=== PATIENT | male | born 1940 | race Caucasian/White ===

== ENCOUNTER 2025-05-17 10:43 | Outpatient (CLI) | payer MEDICARE, SELFPAY | END 2025-05-17 10:44 | disposition home or self-care (01) | LOC: AMB 05-18 10:38 | PROVIDERS: Visit Provider Emergency Medicine | DX: R53.1 Weakness (principal); R41.82 Altered mental status, unspecified | CPT/HCPCS: A0425; A0429 ==

== ENCOUNTER 2025-05-17 11:20 | Emergency (ER) | payer MEDICARE, SELFPAY ==
--- OUTSIDE RECORDS SUMMARY | 2021-11-30 10:43 | XMS_ITS | Continuity of Care Document ---
Author Name [facility] Organization [facility] Care Team Providers Care Senior It Architect Name Role Phone [facility] Unavailable Unavailable Problems Combined list of problems from Department of Defense and Veterans Affairs facilities. It does not include entries that were removed or entered in error. Problem Status Onset Date Problem Type Date of Resolution Comments Source CAD Active 09/30/19 05 Condition Dec 27, 2004 Entered By: William STARR Comment: s/p stent [facility] CA - Cancer of colon (SNOMED CT 256918141) Active 09/30/19 03 Condition Dec 18, 2002 Entered By: William STARR Comment: s/p partial colectomy [facility] Bilateral knee pain Active Condition [facility] BPH - Benign prostatic hypertrophy (SNOMED CT 794054675) Active Condition [facility] CAD - Coronary artery disease Active Condition [facility] Chronic kidney disease (SNOMED CT 899836153) Active Condition [facility] Constipation, unspecified (ICD-9-CM 564.00) Active Condition [facility] Disease, prostate Active Condition [facility] Gastroesophageal reflux disease without esophagitis (SNOMED CT 002095714) Active Condition [facility] Hyperlipidemia (SNOMED CT 47878649) Active Condition [facility] Hypertension (SNOMED CT 19975312) Active Condition [facility] Hypertrophy (Benign) of Prostate without Urinary obstruction (ICD-9-CM 600.00) Active Condition [facility] Hypothyroidism (SNOMED CT 98903889) Active Condition [facility] Peripheral neuropathy Active Condition [facility] Rheumatoid arthritis (SNOMED CT 42289110) Active Condition [facility] Sleep apnea syndrome (SNOMED CT 44895073) Active Condition [facility] Medications Combined list of outpatient medications from Department of Defense and Veterans Affairs facilities.Medications provided include 1) outpatient medications from the last 15 months, and 2) patient-reported medications. Medication Details Route Status Patient Instructions Prescription Expires Prescription Number Last Dispense Date Ordering Provider Order Date Order Qty Source ASPIRIN 81MG TAB,EC TAKE ONE TABLET BY MOUTH ONCE DAILY ORAL ACTIVE MADDIPATL A AMAIRANI SHAYYCEM 2013 [facility] ATORVASTATI N CA 40MG TAB TAKE ONE-HALF TABLET BY MOUTH AT BEDTIME ORAL ACTIVE MADDIPATL A AMAIRANI SHAYY,CEM ARRIAGA 2013 [facility] FINASTERIDE 5MG TAB TAKE ONE TABLET BY MOUTH ONCE DAILY ORAL ACTIVE MADDIPATL A AMAIRANI SHAYY,CEM ARRIAGA 2013 [facility] FUROSEMIDE 40MG TAB TAKE ONE TABLET BY MOUTH ONCE DAILY ORAL ACTIVE MADDIPATL A AMAIRANI SHAYYCEM 2013 [facility] GABAPENTIN 600MG TAB TAKE ONE-HALF TABLET BY MOUTH TWICE DAILY ORAL ACTIVE MADDIPATL A AMAIRANI SHAYYCEM 2013 [facility] MULTIVITAMI NS W/MINERALS TAB TAKE ONE TABLET BY MOUTH ONCE DAILY ORAL ACTIVE ADELAIDA BAH A 2016 [facility] OMEPRAZOLE 20MG CAP,EC TAKE 1 CAPSULE BY MOUTH ONCE DAILY ORAL ACTIVE MADDIPATL A AMAIRANI SHAYY,CEM ARRIAGA 2013 [facility] POLYETHYLEN E GLYCOL 3350 PWDR,ORAL TAKE 1 MEASURED CAPFUL (1 HEAPING TABLESPO ONFUL) AND MIX IN 8 OUNCES OF WATER OR JUICE ONCE DAILY NOT APPLIC ABLE ACTIVE MADDIPATL A AMAIRANI SHAYYCEM 2013 [facility] PSYLLIUM PWDR,ORAL TAKE 1 TEASPOON FUL AND MIX IN 8 OUNCES OF WATER OR JUICE ONCE DAILY NOT APPLIC ABLE ACTIVE MADDIPATL A AMAIRANI SHAYYCEM 2013 [facility] TAMSULOSIN HCL 0.4MG CAP TAKE 1 CAPSULE BY MOUTH AT BEDTIME ORAL ACTIVE CEM CAIN BART 2013 [facility] Allergies, Adverse Reactions, Alerts Combined list of allergies from Department of Defense and Veterans Affairs facilities. It does not include entries that were removed or entered in error. Substance Category Reaction Severity Reaction type Status Date Reported Comments Source LISINOPRIL Propensity to adverse reactions to drug (finding) active 1 [facility] Immunizations Combined list of available immunizations from the Department of Defense and Veterans Affairs facilities. Immunization Series Date Given Administered By Site Reaction Lot Number CVX Code Drug Audio Installer Status Comments Source INFLUENZA, UNSPECIFIED FORMULATION 2020 88 complet ed [facility] COVID-19 (MODERNA), MRNA, LNP-S, PF, 100 MCG/0.5 ML DOSE 2 2020 207 complet ed [facility] COVID-19 (MODERNA), MRNA, LNP-S, PF, 100 MCG/0.5 ML DOSE 1 2020 207 complet ed [facility] INFLUENZA, UNSPECIFIED FORMULATION 2019 88 complet ed [facility] FLU,3 YRS (HISTORICAL) 2018 88 complet ed [facility] FLU,3 YRS (HISTORICAL) 2017 88 complet ed [facility] FLU,3 YRS (HISTORICAL) 2017 88 complet ed [facility] FLU,3 YRS (HISTORICAL) 2015 88 complet ed [facility] FLU,3 YRS (HISTORICAL) 2014 88 complet ed recieved [facility] PNEUMOCOCCAL POLYSACCHARID E PPV23 2014 33 complet ed requested [facility] FLU, 3YRS (HISTORICAL) 2013 88 complet ed [facility] VARICELLA 2013 21 complet ed requested [facility] PNEUMOCOCCAL CONJUGATE PCV 13 2013 133 complet ed requested [facility] FLU, 3YRS (HISTORICAL) 2012 88 complet ed [facility] FLU, 3YRS (HISTORICAL) 2011 88 complet ed [facility] FLU,3 YRS (HISTORICAL) 2010 88 complet ed [facility] PNEUMOCOCCAL CONJUGATE PCV 13 2010 133 complet ed requested [facility] FLU, 3YRS (HISTORICAL) 2009 88 complet ed [facility] FLU,3 YRS (HISTORICAL) 2009 88 complet ed [facility] FLU,3 YRS (HISTORICAL) 2008 88 complet ed [facility] NOVEL INFLUENZA-H1N 1-09, ALL FORMULATIONS 2008 128 complet ed [facility] FLU,3 YRS (HISTORICAL) 2007 88 complet ed [facility] FLU,3 YRS (HISTORICAL) 2006 88 complet ed [facility] FLU,3 YRS (HISTORICAL) 2005 88 complet ed [facility] FLU,3 YRS (HISTORICAL) 2004 88 complet ed [facility] FLU,3 YRS (HISTORICAL) 2003 88 complet ed [facility] PNEUMOCOCCAL, UNSPECIFIED FORMULATION 2003 109 complet ed [facility] FLU,3 YRS (HISTORICAL) 2001 88 complet ed [facility] FLU,3 YRS (HISTORICAL) 2000 88 complet ed [facility] PNEUMOCOCCAL, UNSPECIFIED FORMULATION 2000 109 complet ed [facility] Social History Combined list of available smoking, tobacco, and other social history from Department of Defense and Veterans Affairs facilities. Social History Type Response Date Comment Sourc e Tobacco smoking status VAIS VA-TOBACCO NEVER USED 11/30/2021 [facility] History of tobacco use VA-TOBACCO NEVER USED 12/07/2020 [facility] History of tobacco use VA-TOBACCO NEVER USED 12/11/2018 [facility] [place] of tobacco use VA-TOBACCO NEVER USED 12/11/2018 [facility] [place] History of tobacco use QUIT TOBACCO >7 YEARS AGO 05/17/2016 [facility] [place] History of tobacco use LIFETIME NON-USER OF TOBACCO 04/22/2012 [facility] History of tobacco use LIFETIME NON-USER OF TOBACCO 05/07/2011 [facility] History of tobacco use LIFETIME NON-USER OF TOBACCO 07/20/2010 [facility] History of tobacco use LIFETIME NON-USER OF TOBACCO 01/03/2010 [facility] History of tobacco use QUIT TOBACCO >12 MO and <7 YRS AGO 03/01/2009 [facility] History of tobacco use QUIT TOBACCO >12 MO and <7 YRS AGO 03/12/2008 [facility] History of tobacco use QUIT TOBACCO >12 MO and <7 YRS AGO 02/25/2007 [facility] History of tobacco use QUIT TOBACCO >12 MO and <7 YRS AGO 05/10/2006 [facility] History of tobacco use CURRENT TOBACCO USER 01/17/2005 [facility] History of tobacco use CURRENT TOBACCO USER 12/20/2003 [facility] History of tobacco use QUIT TOBACCO IN THE LAST 12 MONTHS 12/18/2002 [facility] History of tobacco use CURRENT TOBACCO USER 11/24/2001 [facility]
--- OUTSIDE RECORDS SUMMARY | 2025-04-27 11:30 | XMS_ITS | Encounter Summary ---
Author Organization [facility] Address [address] [place] [address] Care Team Providers Care Air Control/Anti Air Warfare Officer Name Role Phone Mary Goodwin M.D. Primary Care Provider [phone] Reason for Referral * Outpatient (Routine) - Authorized Specialty Diagnoses / Procedures Referred By Contac t Referred To Contact Otorhinolaryngology Diagnoses Cholesteatoma External Ear Bilateral Cerumen Impacted Bilateral Unspecified Chronic Otitis Externa Right Ear Brad Acosta M.D. [address] [place] [address] Phone: tel: fax: [facility] Referral ID Status Reason Start Date Expiration Date V isits Requested Visits Authorized [id number] Authorized 04/27/2025 10/27/2026 1 1 Reason for Visit * Outpatient (Routine) - Closed Specialty Diagnoses / Procedures Referred By Contac t Referred To Contact Otorhinolaryngology Diagnoses Cholesteatoma External Ear Bilateral Cerumen Impacted Bilateral Brad Acosta M.D. [address] [place] [address] Phone: tel: fax: [facility] Region Referral ID Status Reason Start Date Expiration Date Visits Re quested Visits Authorized [id number] Closed 01/26/2025 07/28/2026 1 1 Encounter Details Date Type Department Care Team (Latest Contact Info) Description 04/27/2025 11:30 AM CDT Office Visit Department of Otorhinolaryngology in [place], [place] [address] [place] [phone] Brad Acosta M.D. [address] [place] [address] Cholesteatoma External Ear Bilateral (Primary Dx); Cerumen Impacted Bilateral; Unspecified Chronic Otitis Externa Right Ear Discharge Disposition: Home or Self Care Social History Tobacco Use Types Packs/Day Years Used Date Smoking Tobacco: Former Cigarettes 0 1953 - 09/30/2004 Passive Smoke Exposure: Never Smokeless Tobacco: Never Tobacco Cessation:Counseling Given: Not Answered Alcohol Use Standard Drinks/Week Comments Not Currently 0 (1 standard drink = 0.6 oz pur e alcohol) rare. Humiliation, Afraid, Rape, and Kick questionnair e Answer Date Recorded Within the last year, have y ou been afraid of your partner or ex-partner? No 04/29/2023 Within the last year, have y ou been humiliated or emotionally abused in other ways by your partner or ex-partner? No Within the last year, have y ou been kicked, hit, slapped, or otherwise physically hurt by your partner or ex-partner? No 04/29/2023 Within the last year, have y ou been raped or forced to have any kind of sexual activity by your partner or ex-partner? No 04/29/2023 Hunger Vital Sign Answer Date Recorded Within the past 12 months, y ou worried that your food would run out before you got the money to buy more. Never true 04/20/20 25 Within the past 12 months, t he food you bought just didn't last and you didn't have money to get more. Never true 04/20/2025 PRAPARE - Transportation Answer Date Re corded In the past 12 months, has l ack of transportation kept you from medical appointments or from getting medications? No 03/31 In the past 12 months, has l ack of transportation kept you from meetings, work, or from getting things needed for daily living? No 04/20/2025 [facility] Utilities Answer Date Recorded In the past 12 months has th e electric, gas, oil, or water company threatened to shut off services in your home? No 04/20/2025 Depression Answer Date Recor ded PHQ-9 Total Score (max 27) 2 11/12 Housing Stability Answer Date Recorded What is your living situation today? I have a [facility] place to live 04/20/2025 Education Answer Date Recorded What is the highest level of school you have completed or the highest degree you have received? 12th grade 12/03/2022 Sex and Gender Information Value Date Recorded Sex Assigned at Male 12/03/2022 5:23 PM SYSTEM SUPPORT SPECIALIST Legal Sex Male 3:43 PM CDT Gender Identity Male 12/03/2022 5:23 PM SYSTEM SUPPORT SPECIALIST Sexual Orientation Straight 12/03/2022 5: 23 PM SYSTEM SUPPORT SPECIALIST documented as of this encounter Progress Notes * Brad Acosta M.D. - 04/27/2025 11:30 AM CDT SUBJECTIVE CHIEF COMPLAINT/REASON FOR VISIT Geremias Estrella is a very pleasant 84 y.o. male who presents for the following: No chief complainton file.. HISTORY OF PRESENT ILLNESS Mr. Estrella returns for follow up chronic otitis externa, cholesteatoma like expansion of the canal with underlying inflammation although no significant cholesteatoma debris. He denies any interim symptoms, no change in hearing, no ear pain or drainage. OBJECTIVE PHYSICAL EXAMINATION Appears well, no distress. Both canals demonstrate adherent keratinous cerumen on the floor lateralcanal, some lateral canal expansion. Diffuse lateral canal floor carotid cerumen elevated, some underlying inflammation, couple scant foci granulation. Otherwise canal patent. It visible TMs intact. ASSESSMENT / PLAN #1 Cholesteatoma External Ear Bilateral #2 Cerumen Impacted Bilateral #3 Unspecified Chronic Otitis Externa Right Ear Other orders - Otorhinolaryngology office visit (clinic) - Otorhinolaryngology office visit (clinic); Future; Expected date: 08/28/2025 #1 Cholesteatoma External Ear Bilateral Discussed option further evaluation [place] [facility], he declined. I do ultimately think he is simply going to need ongoing routine debridement to sustain and avoid progression. Findings have been stable with three-month recheck, will increase to 4 month recheck. Invited to return sooner any symptoms or concerns. #2 Cerumen Impacted Bilateral Debrided #3 Unspecified Chronic Otitis Externa Right Ear We will likely improve with debridement. No enduring improvement following prior Ciprodex treatment. Option extended course discussed, he declined any further topical therapy. Follow up room 5, alligator. We will need blanket on headrest to provide additional elevation to support head during debridement documented in this encounter Plan of Treatment Upcoming Encounters Date Type Department Care Team (Late st Contact Info) Description 05/25/2025 4:30 PM CDT Appointment Department of Laboratory Medicine in [address] [phone] Mary Goodwin M.D. [address] [place] [phone] 05/27/2025 9:00 AM CDT Office Visit Department of Family Medicine, [facility], in [address] [phone] Mary Goodwin M.D. [address] [place] [phone] Discharge Disposition: Home or Self Care 07/26/2025 3:15 PM CDT Office Visit Department of Orthopedic Surgery in [address] [phone] Elsa Villarreal D.PDavidM. [address] [place] [address] Discharge Disposition: Home or Self Care Scheduled Referrals Name Type Priority Associated Diagnoses Order Schedule Otorhinolaryngology office visit (clinic) Outpatient Referral Routine Cholesteatoma External Ear Bilateral Cerumen Impacted Bilateral Unspecified Chronic Otitis Externa Right Ear Expected: 08/28/2025, Expires: 07/28/2026 documented as of this encounter Visit Diagnoses Diagnosis Cholesteatoma External Ear Bilateral- Primary Cerumen Impacted Bilateral Unspecified Chronic Otitis Externa Right Ear documented in this encounter Additional Health Concerns Assessment Noted Time PHQ-9 Depression Total Score: 2 11/12/19 24 4:33 PM SYSTEM SUPPORT SPECIALIST documented as of this encounter Care Teams Air Control/Anti Air Warfare Officer Relationship Specialty Start Date End Date Mary Goodwin M.D. [address] [place] [phone] PCP - General 02/14/24 documented as of this encounter
[2025-05-17] VITALS (15 sets, daily range): BP systolic 124–129; BP diastolic 66–85; PULSE 75–80; RESP 18–20; TEMP 37; O2SAT 99–100
--- NOTE | 2025-05-17 11:55 | CRLHL7_ITS ---
For Patients: As a result of the Cures Act, medical imaging exams and procedure reports are released immediately into your electronic medical record. You may view this report before your referring provider. If you have questions, please contact your health care provider. INDICATION: Edema. Dialysis patient. COMPARISON: None TECHNIQUE: Two radiographic view(s) of the chest. FINDINGS: No pneumothorax. No substantial pleural effusion. Diffuse prominence of the interstitial pulmonary markings. Prominent focal opacity at the left lower lung zone which may represent consolidation or atelectasis. Heart size measures at the upper limits of normal. Tortuous and calcified thoracic aorta. Partially imaged cervical spinal fusion hardware. There are osseous degenerative changes. IMPRESSION: Diffuse prominence of the pulmonary interstitial markings probably representing either edema or infection. Prominent focal opacity at the left lower lung zone which may represent consolidation or atelectasis. Heart size measures at the upper limits of normal. Dictated by Wei Bundy MD @ 05/17/2025 1:36:26 PM (Electronically Signed)
--- NOTE | 2025-05-17 11:56 | ED.GENADULT ---
HPI - General Adult General Time Seen by Provider: 11:56 Date Seen: 05/17/25 Chief complaint: Altered Mental Status Stated complaint: Altered mental Time Seen by Provider: 05/17/25 11:33 Source: patient Mode of arrival: EMS Limitations: physical limitation History of Present Illness HPI narrative: Geremias is an 84-year-old male with end-stage renal disease currently on dialysis M/W/F, diabetes mellitus type 2, hypertension, hyperlipidemia presents emerged department from dialysis via EMS with altered mental status. Patient states that he got up around 9:00 a.m. this morning, he had more difficulty getting himself dressed, he states he has a lot of pain in both of his knees which is chronic, he has been taking tramadol which has not been helping with his pain. His son had to help him get his shoes on, and he was unable to walk due to the pain and weakness. Son helped him get to dialysis, they only did about 2-1/2 hours on a 4 hour run, staff there thought he was more confused. Patient feels he has had more memory issues over last few months. He denies any recent falls or injuries. Denies any fevers or chills, he denies any worsening shortness of breath or chest pain, he has not had any abdominal pain. He does not have any urinary output. No diarrhea. There was concern for changes in mental status so he is brought to the emergency department. Related Data Home Medications ?Medication ?Instructions ?Recorded ?Confirmed amitriptyline 50 mg tablet 50 mg PO QHS 05/17/25 05/17/25 antiarthritic combination no.2 900 mg PO 05/17/25 mg tablet (glucosamine-chondroitin) aspirin 81 mg tablet 81 mg PO DAILY 05/17/25 05/17/25 atorvastatin 20 mg tablet 20 mg PO QHS 05/17/25 05/17/25 clopidogrel 75 mg tablet (Plavix) 75 mg PO DAILY 05/17/25 05/17/25 finasteride 5 mg tablet 5 mg PO DAILY 05/17/25 05/17/25 gabapentin 300 mg capsule 300 mg PO QHS 05/17/25 05/17/25 hydroxyzine pamoate 25 mg capsule 25 mg PO BID 05/17/25 05/17/25 levothyroxine 175 mcg tablet 175 mcg PO DAILY 05/17/25 05/17/25 (Euthyrox) linaclotide 72 mcg capsule 72 mcg PO DAILY 05/17/25 05/17/25 (Linzess) midodrine 10 mg tablet 10 mg PO TID 05/17/25 05/17/25 ondansetron HCl 4 mg tablet 4 mg PO BID-TID PRN 05/17/25 05/17/25 sevelamer carbonate 800 mg tablet 800 mg PO TID 05/17/25 05/17/25 (Renvela) tamsulosin 0.4 mg capsule (Flomax) 0.4 mg PO DAILY 05/17/25 05/17/25 tramadol 50 mg tablet 25 mg PO Q6H PRN 05/17/25 05/17/25 vitamin B complex-vitamin C-folic 1 tab PO DAILY 05/17/25 05/17/25 acid 0.8 mg tablet (Full Spectrum B-Vitamin C) Previous Rx's ?Medication ?Instructions ?Recorded amoxicillin 875 mg-potassium 1 tab PO .Q24 5 days #5 tabs 05/17/25 clavulanate 125 mg tablet Allergies Allergy/AdvReac Type Severity Reaction Status Date / Time ARB-Angiotensin Receptor Allergy Intermediate Verified 05/17/25 11:40 Antagonist lisinopril Allergy Unknown Verified 05/17/25 11:40 metformin Allergy Unknown Verified 05/17/25 11:40 NSAIDS (Non-Steroidal Allergy Unknown Verified 05/17/25 11:40 Anti-Inflamma Review of Systems Status of ROS: Reports: 10 or more systems reviewed and unremarkable except as noted in History and below Exam Narrative: Exam Narrative: General: No obvious distress sitting comfortably, nontoxic in appearance Neuro: Is alert awake and oriented x3, GCS of 15 HEENT: Head is atraumatic, tympanic membranes within normal limits bilaterally, oropharynx clear and moist Pupils equal round reactive to light, extraocular muscles intact Lungs; clear to auscultation bilaterally Heart: normal sinus rhythm Abdomen: Soft, nontender, bowel sounds present Muscle skeletal: Active extension and flexion of bilateral knees, no joint swelling No edema Psych: Mood and affect normal Const: Vital Signs, click to edit/add: Vital Signs - 24 hr 05/17/25 11:33 Temperature 98.6 F Pulse Rate [Pulse Oximeter] 80 Respiratory Rate 20 Blood Pressure [Ri ght Upper Arm] 128/71 Course Course ED Course: 11:45 AM: aidet performed: Vitals are normal at this time, workup will include EKG, CBC, magnesium, CMP and XR chest PA and lateral. Patient is back to baseline per family at this time, will make sure no metabolic abnormalities since patient recently had dialysis, no new trauma or falls, will plan to rule out any worsening pulmonary edema versus less likely pneumonia. Patient is not confused at this time. The ED disposition pending clinical course. Reevaluation(s) Reevaluation #1: IMPRESSION: Diffuse prominence of the pulmonary interstitial markings probably representing either edema or infection. Prominent focal opacity at the left lower lung zone which may represent consolidation or atelectasis. Heart size measures at the upper limits of normal. EKG showed no acute changes, normal sinus rhythm with first-degree AV block, bpm 76, incomplete right bundle-branch block, minimal voltage criteria for LVH unchanged from previous. CBC showed no leukocytosis, chronic anemia, comprehensive metabolic panel shows sodium 134, normal potassium 4.1, normal magnesium 2.1, BUN 39, creatinine at 3.8, imaging showed as above, no signs of any fluid overload at this time, vitals have been stable during his stay, based on findings will cover him with Augmentin 875-125 mg every 24 hours for 5 days, 1 g Tylenol scheduled every 6 hours for his knee pain he needs follow-up with his primary care provider over the next 7-10 days. Return precautions given Vital Signs Vital signs: Initial Vital Signs Temperature 98.6 F 05/17/25 11:33 Temperature Source Temporal Artery Scan 05/17/25 11:33 Pulse Rate 80 05/17/25 11:33 Respiratory Rate 20 05/17/25 11:33 Blood Pressure 128/71 05/17/25 11:33 Blood Pressure Mean 90 05/17/25 11:33 Vital Signs Temperature 98.6 F 05/17/25 11:33 Pulse Rate 80 05/17/25 11:33 Respiratory Rate 20 05/17/25 11:33 Blood Pressure 128/71 05/17/25 11:33 Temperature 98.6 F 05/17/25 11:33 Pulse Rate 80 05/17/25 11:33 Respiratory Rate 20 05/17/25 11:33 Blood Pressure 128/71 05/17/25 11:33 Medical Decision Making Lab Data Labs: Lab Results 05/17/25 05/17/25 Range/Units 11:00 13:25 WBC 5.35 (4.50-11.00) K/uL RBC 3.76 L (4.30-5.90) m/uL Hgb 11.4 L (13.5-17.5) gm/dL Hct 35.0 L (37.0-53.0) % MCV 93 (80-100) fL MCH 30 (26-34) pg MCHC 33 (32-36) gm/dL RDW Coeff of Edmund 15.4 (11.5-15.5) % Plt Count 170 (140-440) K/uL Neut % (Auto) 66.0 (42.0-72.0) % Lymph % (Auto) 18.5 L (20-44) % [facility] % (Auto) 12.0 H (0.0-11.0) % Eos % (Auto) 2.4 (0.0-7.0) % Baso % (Auto) 0.7 (0.0-3.0) % Neut # (Auto) 3.53 (1.7-7.0) K/uL Lymph # (Auto) 1.00 (0.90-2.90) K/uL [facility] # (Auto) 0.60 (0.00-0.90) K/UL Eos # (Auto) 0.13 (0.00-0.50) K/uL Baso # (Auto) 0.04 (0.00-0.30) K/uL Abs Immat Gran (auto) 0.02 (0.00-0.30) K/uL Imm/Tot Granulo (auto) 0.4 % VBG pH 7.345 (7.32-7.43) VBG pCO2 47 (40-50) mmHG VBG pO2 < 30.1 (25-47) mmHG VBG HCO3 26 (21-28) mmol/L Sodium 134 L (135-149) mmol/L Potassium 4.1 (3.6-5.1) mmol/L Chloride 100 (96-114) mmol/L Carbon Dioxide 25 (20-32) mmol/L Anion Gap 9 (7-15) mEq/L BUN 39 H (7-30) mg/dL Creatinine 3.8 H (0.5-1.5) mg/dL Estimated GFR 15 ml/min Glucose 104 (60-115) mg/dL Calcium 9.5 (8.4-10.6) mg/dL Magnesium 2.1 (1.5-2.6) mg/dL Total Bilirubin 0.5 (0.1-1.5) mg/dL AST 22 (12-35) U/L ALT 18 (4-50) U/L Alkaline Phosphatase 72 (40-150) U/L Total Protein 6.8 (6.0-8.3) g/dL Albumin 3.9 (3.3-5.0) g/dL Discharge Plan Discharge Clinical Impression: Intermittent confusion, Bilateral chronic knee pain, Dialysis patient Patient Disposition: Home, Self-Care Condition: Improved Instructions: Knee Pain (ED) Additional Instructions: To take Augmetin 875 mg every 24 hours for 5 days, to take scheduled Tylenol 1 g every 6 hours for bilateral knee pain, follow-up with primary care provider over the next 7-10 days. Prescriptions: New amoxicillin-pot clavulanate 875-125 mg tablet 1 tab PO .Q24 5 Days Qty: 5 0RF No Action amitriptyline 50 mg tablet 50 mg PO QHS atorvastatin 20 mg tablet 20 mg PO QHS aspirin 81 mg tablet 81 mg PO DAILY finasteride 5 mg tablet 5 mg PO DAILY gabapentin 300 mg capsule 300 mg PO QHS glucosamine-chondroitin 900 mg tablet PO hydroxyzine pamoate 25 mg capsule 25 mg PO BID Linzess 72 mcg capsule 72 mcg PO DAILY midodrine 10 mg tablet 10 mg PO TID Rx Instructions: do not give last dose of day after 6PM or within 4 hrs of bedtime Full Spectrum B-Vitamin C 0.8 mg tablet 1 tab PO DAILY ondansetron HCl 4 mg tablet 4 mg PO BID-TID PRN clopidogrel [Plavix] 75 mg tablet 75 mg PO DAILY sevelamer carbonate [Renvela] 800 mg tablet 800 mg PO TID Rx Instructions: must administer with a meal/food levothyroxine [Euthyrox] 175 mcg tablet 175 mcg PO DAILY tamsulosin [Flomax] 0.4 mg capsule 0.4 mg PO DAILY tramadol 50 mg tablet 25 mg PO Q6H PRN Follow Up/Referrals: Provider,Not a Local [Primary Care Provider, Family Practice] Stand Alone Forms: [facility] Info Instructions Procedures ABG Interpretation ABG Results: 05/17/25 13:25 VBG pH 7.345 VBG pCO2 47 VBG pO2 < 30.1 VBG HCO3 26
[2025-05-17 12:45] LABS: Hematocrit* 35.0 % (37.0-53.0); Hemoglobin* 11.4 gm/dL (13.5-17.5); Immature Granulocytes Abs Auto 0.02 K/uL (0.00-0.30); Immature Granulocytes Pct Auto 0.4 %; Mean Corpuscular HGB Conc 33 gm/dL (32-36); Mean Corpuscular Hemoglobin 30 pg (26-34); Mean Corpuscular Volume 93 fL (80-100); RDW Coefficient of Variation % 15.4 % (11.5-15.5); Red Blood Count* 3.76 m/uL (4.30-5.90); White Blood Count* 5.35 K/uL (4.50-11.00)
[2025-05-17 13:00] LABS: Lymphocytes Absolute Auto 1.00 K/uL (0.90-2.90); Slide Review Reflex No
[2025-05-17 13:10] LABS: Albumin* 3.9 g/dL (3.3-5.0); Chloride* 100 mmol/L (96-114); Potassium* 4.1 mmol/L (3.6-5.1); Sodium* 134 mmol/L (135-149)
[2025-05-17 13:12] LABS: Anion Gap 9 mEq/L (7-15); Blood Urea Nitrogen* 39 mg/dL (7-30); Carbon Dioxide* 25 mmol/L (20-32); Creatinine* 3.8 mg/dL (0.5-1.5); Estimated Glomerular Filt Rate 15 ml/min
[2025-05-17 13:13] LABS: Alanine Aminotransferase* 18 U/L (4-50); Alkaline Phosphatase* 72 U/L (40-150); Aspartate Amino Transferase* 22 U/L (12-35); Bilirubin Total* 0.5 mg/dL (0.1-1.5); Calcium* 9.5 mg/dL (8.4-10.6); Glucose* 104 mg/dL (60-115); Total Protein* 6.8 g/dL (6.0-8.3)
--- OUTSIDE RECORDS SUMMARY | 2025-05-17 13:57 | XMS_ITS | Encounter Summary ---
Author Organization [place] Address [address] [place] [address] Care Team Providers Care Aluminum Molder Name Role Phone Janet Villarreal MD Unavailable Unavaila Hung Arreguin MD Unavailable + [phone] Janet Villarreal MD Unavailable Unavaila ble No Ref-Primary, Physician Primary Care Provider Mary Goodwin MD Primary Care Provider [phone] Peter Bedoya MD Unavailable [facility] Unavailabl e Reason for Visit * Reason Comments Medication Refill Encounter Details Date Type Department Care Team (Late st Contact Info) Description 04/17/2023 Refill [facility] [address] [place] [address] Janet Villarreal MD Medication Refill Social History Tobacco Use Types Packs/Day Years Used Date Smoking Tobacco: Former Cigarettes 1.5 50.9 0 1953 - 09/30/2004 Smokeless Tobacco: Never Alcohol Use Standard Drinks/Week Comments Never 0 (1 standard drink = 0.6 oz pur e alcohol) PHQ-2 Answer Date Recorded PHQ-2 Score 0 02/13/2022 Sex and Gender Information Value Date Recorded Sex Assigned at Not on file 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 documented in this encounter Plan of Treatment Not on file documented as of this encounter Visit Diagnoses Diagnosis Rheumatoid arthritis involving multiple sites, unspecified whether rheumatoid factor present (H) documented in this encounter Care Teams Aluminum Molder Relationship Specialty Start Date End Date No Ref-Primary, Physician PCP - General 03/05/24 06/10/24 Mary Goodwin MD [facility] Of Family Medicine [address] [place] [phone] PCP - General Family Practice 06/11/24 Janet Villarreal MD Assigned PCP 10/05/21 12/19/24 Hung Sigala MD [address] [place] [id number] Assigned Heart and Vascular Provider 02/11/22 Janet Villarreal MD Assigned Pain Medication Provider 04/20/23 10/23/23 Peter Bedoya MD [address] [place] [address] Assigned Musculoskeletal Provider 06/22/24 [facility] [address] [address] Assigned PCP 12/20/24 documented as of this encounter
--- OUTSIDE RECORDS SUMMARY | 2025-05-17 13:57 | XMS_ITS | Encounter Summary ---
Author Organization [place] Address [address] [place] [address]. [place] [address] Care Team Providers Care Double End Tenoner Operator Name Role Phone Janet Villarreal MD Unavailable Unavaila ble Hung Sigala MD Unavailable + [phone] Janet Villarreal MD Unavailable Unavaila ble No Ref-Primary, Physician Primary Care Provider Mary Goodwin MD Primary Care Provider + [phone] Peter Bedoya MD Unavailable [facility] Unavailabl e Encounter Details Date Type Department Care Team (Late st Contact Info) Description 05/22/2023 MyC Medical Advice [facility] [place] 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 Gender Identity Not on file Sexual Orientation Not on file documented as of this encounter Plan of Treatment Not on file documented as of this encounter Visit Diagnoses Not on filedocumented in this encounter Care Teams Double End Tenoner Operator Relationship Specialty Start Date End Date No Ref-Primary, Physician PCP - General 03/05/24 06/10/24 Mary Goodwin MD [facility]-Department Of Family Medicine [address] [place] [phone] PCP - General Family Practice 06/11/24 Janet Villarreal MD Assigned PCP 10/05/21 12/19/24 Hung Sigala MD [address] [place] [address] Assigned Heart and Vascular Provider 02/11/22 Janet Villarreal MD Assigned Pain Medication Provider 04/20/23 10/23/23 Peter Bedoya MD [address] [place] [address] Assigned Musculoskeletal Provider 06/22/24 [facility] [address] [place] [address] Assigned PCP 12/20/24 documented as of this encounter
--- OUTSIDE RECORDS SUMMARY | 2025-05-17 13:57 | XMS_ITS | Encounter Summary ---
Author Organization [place] Address [address] [place] [address] Care Team Providers Care Soaker Soda Worker Name Role Phone Janet Villarreal MD Unavailable Unavaila ble Hung Sigala MD Unavailable + [phone] Janet Villarreal MD Unavailable Unavaila ble No Ref-Primary, Physician Primary Care Provider Mary Goodwin MD Primary Care Provider + [phone] Peter Bedoya MD Unavailable [facility] Unavailabl e Encounter Details Date Type Department Care Team (Late st Contact Info) Description 10/22/2023 MyC Medical Advice [facility] [address] [place] [address] Malia Marmolejo Social History Tobacco Use Types Packs/Day Years Used Date Smoking Tobacco: Former Cigarettes 1.5 50.9 0 1953 - 09/30/2004 Smokeless Tobacco: Never Alcohol Use Standard Drinks/Week Comments Never 0 (1 standard drink = 0.6 oz pur e alcohol) PHQ-2 Answer Date Recorded PHQ-2 Score 0 02/13/2022 Adolescent Education Answer Date Record ed Getting School Help Needed Not on file 06/22 Sex and Gender Information Value Date Recorded Sex Assigned at Not on file 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 Gender Identity Not on file Sexual Orientation Not on file documented as of this encounter Plan of Treatment Not on file documented as of this encounter Visit Diagnoses Not on filedocumented in this encounter Care Teams Soaker Soda Worker Relationship Specialty Start Date End Date No Ref-Primary, Physician PCP - General 03/05/24 06/10/24 [facility] [address] [place] [phone] PCP - General Family Practice 06/11/24 Janet Villarreal MD Assigned PCP 10/05/21 12/19/24 Hung Sigala MD [address] [place] [id number] Assigned Heart and Vascular Provider 02/11/22 Janet Villarreal MD Assigned Pain Medication Provider 04/20/23 10/23/23 Peter Bedoya MD [address] [place], [place] [phone] Assigned Musculoskeletal Provider 06/22/24 [facility] [address] [place] [address] Assigned PCP 12/20/24 documented as of this encounter
--- OUTSIDE RECORDS SUMMARY | 2025-05-17 13:57 | XMS_ITS | Encounter Summary ---
Author Organization [place] Address [address] [place] [address] Care Team Providers Care Draw Press Operator Name Role Phone Janet Villarreal MD Unavailable Unavaila Hung Arreguin MD Unavailable + [phone] Mary Goodwin MD Primary Care Provider + [phone] Peter Bedoya MD Unavailable [facility] Unavailabl e Encounter Details Date Type Department Care Team (Late st Contact Info) Description 10/05/2024 MyC Medical Advice [facility] [address] [place] [address] Perry Davila MA Social History Tobacco Use Types Packs/Day Years Used Date Smoking Tobacco: Former Cigarettes 1.5 50.9 0 1953 - 09/30/2004 Smokeless Tobacco: Never Alcohol Use Standard Drinks/Week Comments Never 0 (1 standard drink = 0.6 oz pur e alcohol) PHQ-2 Answer Date Recorded PHQ-2 Score 0 03/31/2024 Adolescent Education Answer Date Record ed Getting School Help Needed Not on file 06/22 Sex and Gender Information Value Date Recorded Sex Assigned at Not on file 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 Gender Identity Not on file Sexual Orientation Not on file documented as of this encounter Plan of Treatment Not on file documented as of this encounter Visit Diagnoses Not on filedocumented in this encounter Care Teams Draw Press Operator Relationship Specialty Start Date End Date Mary Goodwin MD [facility]-Department Of Family Medicine [address] [place] [phone] PCP - General Family Practice 06/11/24 Janet Villarreal MD Assigned PCP 10/05/21 12/19/24 Hung Sigala MD [address] [place] [address] Assigned Heart and Vascular Provider 02/11/22 Peter Bedoya MD [address] [place] [address] Assigned Musculoskeletal Provider 06/22/24 [facility] [address] [place] [address] Assigned PCP 12/20/24 documented as of this encounter
--- OUTSIDE RECORDS SUMMARY | 2025-05-17 13:57 | XMS_ITS | Encounter Summary ---
Author Organization [place] Address [address] [place] [address]. [place] [address] Care Team Providers Care Organ Fixer Name Role Phone Janet Villarreal MD Unavailable Unavaila ble Hung Sigala MD Unavailable +- [phone] Janet Villarreal MD Unavailable Unavaila ble No Ref-Primary, Physician Primary Care Provider Mary Goodwin MD Primary Care Provider [phone] Peter Bedoya MD Unavailable [facility] Unavailabl e Encounter Details Date Type Department Care Team (Late st Contact Info) Description 04/17/2023 MyC Medical Advice [facility] [place] 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 * Telephone Encounter - Angela Ellison - 04/17/2023 12:25 PM CDT Attempted to call patient to schedule, they hung up. Angela Ellison Project Surveyor * Telephone Encounter - Janet Villarreal MD - 04/17/2023 10:32 AM CDT Pt needs appt in clinic. s previously discussed, controlled medications need to be addressed every 6 months; . Last was donevirtually (August 2022), now due for Wellness visit and could do at that time. documented in this encounter Plan of Treatment Not on file documented as of this encounter Visit Diagnoses Not on filedocumented in this encounter Care Teams Organ Fixer Relationship Specialty Start Date End Date No Ref-Primary, Physician PCP - General 03/05/24 06/10/24 Mary Goodwin MD [facility] Of [facility] Medicine [address] [place] [phone] PCP - General Family Practice 06/11/24 Janet Villarreal MD Assigned PCP 10/05/21 12/19/24 Hung Sigala MD [address] [place] [address] Assigned Heart and Vascular Provider 02/11/22 Janet Villarreal MD Assigned Pain Medication Provider 04/20/23 10/23/23 Peter Bedoya MD [facility] [place] [address] Assigned Musculoskeletal Provider 06/22/24 [facility] [address] [place] [address] Assigned PCP 12/20/24 documented as of this encounter
--- OUTSIDE RECORDS SUMMARY | 2025-05-17 13:57 | XMS_ITS | Clinical Summary ---
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 Name Role Phone Unavailable Primary Care Provider Unavailabl e Allergies Active Allergy Reactions Criticality Noted Date Comments 5ht3 Receptor Antagonists Anxiety,Other (see comments) Low 12/26/2015 PCP concerned about kidneys PCP concerned about kidneys PCP concerned about kidneys Angiotensin Receptor Blockers Anxiety,Other (see comments) Low 12/26/2015 PCP concerned about kidneys PCP concerned about kidneys PCP concerned about kidneys Lisinopril Other (see comments) 01/05/2015 PCP concerned about kidneys PCP concerned about kidneys Contraindication Contraindication PCP concerned about kidneys Metformin Other (see comments) 01/05/2015 PCP stopped due to ?? kidney PCP stopped due to ?? kidney Other reaction(s): Unknown Contraindication Contraindication PCP stopped due to ?? kidney Nsaids Other (see comments) 01/05/2015 Contraindication Not allergy was warned against Not allergy was warned against Not allergy was warned against Not allergy was warned against Not allergy was warned against Contraindication Not allergy was warned against Medications amitriptyline (ELAVIL) 25 MG tablet Take 50 mg by mouth at bed time 2 Active aspirin (ST DULCE) 81 MG EC tablet Take 81 mg by mouth in the morning. Active clopidogrel (PLAVIX) 75 MG tablet Take 75 mg by mouth in the morning. 8 Active finasteride (PROSCAR) 5 MG tablet Take 5 mg by mouth in the morning. 2 Active gabapentin (NEURONTIN) 300 MG capsule Take 300 mg by mouth in the morning. 2 Active glucosamine-cho ndroitin 500-400 MG tablet Take 1 tablet by mouth 1 (one) time each day in the evening Active latanoprost (XALATAN) 0.005 % ophthalmic solution Administer 1 drop into affected eye(s) 1 (one) time each day in the evening 3 Active levothyroxine (SYNTHROID, LEVOTHROID) 137 MCG tablet Take 175 mcg by mouth 1 (one) time each day 3 Active linaCLOtide (Linzess) 72 MCG capsule Take 72 mcg by mouth daily 1 Active losartan (COZAAR) 25 MG tablet Take 12.5 mg by mouth in the morning. 2 Active Melatonin 5 MG tablet Take 5 mg by mouth daily 1 Active metoprolol tartrate 25 MG tablet Take 6.25 mg by mouth in the morning and 6.25 mg in the evening. 2 Active midodrine (PROAMATINE) 5 MG tablet Take 10 tablets by mouth 3 (three) times a week During dialysis 2 Active sevelamer carbonate (RENVELA) 800 MG tablet Take 1 tablet by mouth in the morning and 1 tablet at noon and 1 tablet in the evening. 2 Active tamsulosin (FLOMAX) 0.4 MG 24 hr capsule Take 0.4 mg by mouth in the morning. 1 Active traMADol (ULTRAM) 50 MG tablet Take 100 mg by mouth 1 (one) time daily 30 minutes before a meal 2 Active atorvastatin (LIPITOR) 20 MG tablet Take 20 mg by mouth in the morning. 2 Active Multiple Vitamins-Minera ls (PRESERVISION AREDS 2 PO) Take 2 gel by mouth 1 (one) time daily 30 minutes after same meal Active Active Problems Problem Noted Date Diagnosed Date Idiopathic neuropathy, not otherwise specified 0 05/07/2025 Thoracic aortic aneurysm wit hout rupture, not otherwise specified 05/07/2025 Assessment & Plan (05/07/2025 3:49 PM CDT): Status: Stable. Per vascular note, wide discrepancy in size of thoracic aortic aneurysm on different imaging. Plan: Due for surveillance imaging. 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 Now requires midodrine. Last ECHO: 02/13/24 EF 64%, diastolic dysfunction mild. Plan: Continue current medications. Monitor BP closely while on dialysis. Challenge EDW periodically. Recommend ECHO every three years for patients with ESRD per KDOQI guidelines. Assessment & Plan (10/10/2023 3:16 PM MARBLE CHIP TERRAZZO WORKER): HTN: Stable Meds: Takes losartan, Metoprolol No COWART, CP, SOB, vision changes, falls Plan: Continue current treatment Assessment & Plan (11/15/2022 2:49 PM MARBLE CHIP TERRAZZO WORKER): ESRD; Stable Dialysis on: MWF via fistula right arm Diet: Renal, fluid restriction yes Wound: No Fistula/ status: Active and patient Continue dialysis Abdominal aortic aneurysm without rupture 2022 Assessment & Plan (05/07/2025 3:43 PM CDT): Status: Stable. CT oct 2024 showed stability. Plan: Continue to follow with vascular. Assessment & Plan (10/10/2023 2:55 PM MARBLE CHIP TERRAZZO WORKER): Stable. Meds: Takes No COWART, CP, SOB, vision changes, falls Plan: Continue to monitor. Assessment & Plan (11/15/2022 2:37 PM MARBLE CHIP TERRAZZO WORKER): Stable. Meds: Takes No COWART, CP, SOB, vision changes, falls Plan: Continue to monitor. Anemia in chronic kidney disease 08/07/2021 Assessment & Plan (10/10/2023 2:58 PM MARBLE CHIP TERRAZZO WORKER): Stable. HGB 9.6 No COWART, CP, SOB, vision changes, or acute worsening fatigue. Plan: Continue to monitor for clinical symptoms. Monitored and treated at dialysis as well Assessment & Plan (11/15/2022 2:36 PM MARBLE CHIP TERRAZZO WORKER): Stable. HGB 9.6, and Ferritin 180 on 11/12/22. No COWART, CP, SOB, vision changes, or acute worsening fatigue. Plan: Continue to monitor for clinical symptoms. Secondary hyperparathyroidism of renal origin Assessment & Plan (05/07/2025 3:42 PM CDT): Status: Stable Plan: Continue monthly labs. RD following. Assessment & Plan (10/10/2023 3:21 PM MARBLE CHIP TERRAZZO WORKER): Stable. Hyperparathyroidism Pt denies depression, tiredness, feeling thirsty and peeing a lot, feeling sick and losing your appetite, muscle weakness, constipation, tummy pain and loss of concentration. Continue to monitor on dialysis. Assessment & Plan (11/15/2022 3:03 PM MARBLE CHIP TERRAZZO WORKER): Stable. Hyperparathyroidism Pt denies depression, tiredness, feeling thirsty and peeing a lot, feeling sick and losing your appetite, muscle weakness, constipation, tummy pain and loss of concentration. Continue to monitor on dialysis. End stage renal disease 05/27/2021 Assessment & Plan (10/10/2023 3:28 PM MARBLE CHIP TERRAZZO WORKER): ESRD: Stable [facility]T [facility] Diet: Renal, fluid restriction, Meds:Reviewed LABS: see free text pmhx Wound: No Fistula/avc graft status: AVF patent Discussed to follow fluid restrictions of 32oz a day instead of 42oz. Gastroesophageal reflux disease 05/27/2021 Assessment & Plan (10/10/2023 3:11 PM MARBLE CHIP TERRAZZO WORKER): Patient presents with GERD. He is stable Pt denies bad taste in the mouth, heart burn, or upper gastric pain. Plan: -F/U with PPC as appropriate -Continue to monitor for worsening symptoms and med side effects -Avoid large meals and waiting 3hrs after meal before lying down. Assessment & Plan (11/15/2022 2:59 PM MARBLE CHIP TERRAZZO WORKER): Patient presents with GERD. He is stable Pt denies bad taste in the mouth, heart burn, or upper gastric pain. Plan: -Discontinued pantoprazole -F/U with PPC as appropriate -Continue to monitor for worsening symptoms and med side effects -Avoid large meals and waiting 3hrs after meal before lying down. Dependence on renal dialysis 05/26/2021 Assessment & Plan (11/15/2022 2:40 PM MARBLE CHIP TERRAZZO WORKER): Stable. Compliant with dialysis. Dialysis days [facility] Continue dialysis Obstructive sleep apnea syndrome 05/27/2018 Assessment & Plan (10/10/2023 3:18 PM MARBLE CHIP TERRAZZO WORKER): Stable. Continue CPAP. Assessment & Plan (11/15/2022 3:05 PM MARBLE CHIP TERRAZZO WORKER): Stable. Continue CPAP. Resolved Problems Problem Noted Date Diagnosed Date Resolved Date Rheumatoid arthritis of multiple joints 09/27/2022 05/07/2025 Type 2 diabetes mellitus wit h diabetic polyneuropathy 08/14/2018 05/07/2025 Assessment & Plan (11/15/2022 2:49 PM MARBLE CHIP TERRAZZO WORKER): DIABETES: Stable Denies dizziness, polyphagia, polyuria, polydipsia. Endorses neuropathy in both feet. On alejandrina or arb? (Losartan) On aspirin? (Yes) Statin Therapy? Yes Diet:Renal Wounds:No -Continue gabapentin -Recommended plan: yearly dilated eye exam, yearly podiatry exam, A1c q3- 12months. 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 07/29/2018 05/07/2025 Assessment & Plan (10/10/2023 3:21 PM MARBLE CHIP TERRAZZO WORKER): Stable Continue tramadol Continue gabapentin Encounters Date Type Department Care Team Description 05/07/2025 Documentation Only [facility] [address] [facility] [place] [phone] Mary Beth Figueroa NP 05/05/2025 Orders Only [facility] [address] [facility] [phone] Elver Juarez MD 05/05/2025 Treatment [facility] [address] [place] [address] Elver Juarez MD End stage renal disease; Dependence on renal dialysis 04/28/2025 Orders Only [facility] [address] [facility] [place] [address] Elver Juarez MD 04/28/2025 Treatment [facility] [address] [place] [address] Elver Juarez MD End stage renal disease; Dependence on renal dialysis 04/21/2025 Orders Only [facility] [address] [facility] [place] [address] Elver Juarez MD 04/21/2025 Treatment [facility] [address] [place] [address] Roseline Serna APRN-MUD MIXER End stage renal disease; Dependence on renal dialysis 04/14/2025 Orders Only [facility] [address] [facility] [place] [address] Elver Juarez MD 04/07/2025 Orders Only [facility] [address] [facility] [place] [address] Elver Juarez MD 03/31/2025 Orders Only [facility] [address] [facility] [place] [address] Elver Juarez MD 03/24/2025 Orders Only [facility] [address] [facility] [place] [address] Elver Juarez MD 03/22/2025 Treatment [facility] [address] [place] [address] Elver Juarez MD End stage renal disease; Dependence on renal dialysis 03/17/2025 Orders Only [facility] [place] [address] [place] [address] Elver Juarez MD 03/17/2025 Treatment [facility] [address] [place] [address] Roseline Serna APRN-BIANCA End stage renal disease; Dependence on renal dialysis 03/10/2025 Orders Only [facility] [address] [place] [address] Elver Juarez MD 03/03/2025 Orders Only [facility] [place] [address] [facility] [address] [place] [address] Elver Juarez MD 02/24/2025 Orders Only [facility] [place] [address] [facility] [address] [place] [address] Elver Juarez MD 02/17/2025 Treatment [facility] [address] [place] [address] Elver Juarez MD End stage renal disease; Dependence on renal dialysis from Last 3 Months Immunizations Immunization Administration Dates Next Due H1N1 All Forms 06/30/2009 Influenza, Quadrivalent, Pre servative Free 06/21/2020,07/19/2015 Influenza, Trivalent, Adjuvanted 07/04/2016 Influenza, Unspecified 07/06/2022,2020,07/11/2020,07/07,07/07/2018,10/15/2017,07/04/2016 ,06/30/2016,06/30/2011,06/30/2007,07/01,06/30/2004,06/30/2002, 1 Moderna SARS-COV-2 02/13/2022,,11/20/2020,11/08,10/11/2020 Moderna Sars-cov-2 50mcg/0.5ml 07/06/2022 PPD Test 06/04/2021,05/28/2021 Pneumococcal Conjugate 13-Valent 07/07/2021,06/09/2013,12/29/2010 Pneumococcal Polysaccharide 11/27/2021, 5 Pneumococcal, Unspecified 06/30/2004,06/30/2001 Tdap 11/06/2022 Varicella 03/30/2014 Family History Medical History Relation Comments Coronary artery disease Brother No Known Problems Father Diabetes Mother Diabetes Sister Relation Status Comments Brother Father Mother Sister Social History Tobacco Use Types Packs/Day Years Used Date Smoking Tobacco: Never Smokeless Tobacco: Never Tobacco Cessation:Counseling Given: Not Answered Sex and Gender Information Value Date Recorded Sex Assigned at Not on file Legal Sex Male 7:32 AM EDT Gender Identity Not on file Sexual Orientation Not on file Last Filed Vital Signs Vital Sign Reading Time Taken Comments Blood Pressure 100/60 10/10/2023 11:00 AM MARBLE CHIP TERRAZZO WORKER Pulse 62 10/10/2023 11:00 AM MARBLE CHIP TERRAZZO WORKER Temperature 36.3 C (97.3 F) 10/10/2023 11:00 AM MARBLE CHIP TERRAZZO WORKER Respiratory Rate 18 10/10/2023 11:00 AM MARBLE CHIP TERRAZZO WORKER Oxygen Saturation 100% 11/15/2022 1:00 PM MARBLE CHIP TERRAZZO WORKER Inhaled Oxygen Concentration - - Weight 148 kg (327 lb) 10/10/2023 11:00 AM MARBLE CHIP TERRAZZO WORKER Height 190.5 cm (6' 3) 10/10/2023 11:00 AM MARBLE CHIP TERRAZZO WORKER Body Mass Index 40.87 10/10/2023 11:00 AM MARBLE CHIP TERRAZZO WORKER Plan of Treatment Health Maintenance Due Date Last Done Comments Hepatitis B Vaccine (1 of 5 - Risk Dialysis 4-dose series) 1960 Diabetes: Ophthalmology Exam 06/01/2021 Diabetes: Pedal Pulse Checked 06/01/2021 Diabetes: Sensory Foot Exam 06/01/2021 Diabetes: Visual Foot Exam 06/01/2021 Diabetes: Hemoglobin A1C 01/15/2022 10/17/2021, 07/31 Influenza Vaccine (#1) 2025 , 07/10/2023, 07/06/2022, Additional history exists Pneumococcal Vaccine: 50+ Years Completed 11/27/2021, 07/07/2021, 02/28/2015, Additional history exists Procedures Procedure Name Priority Date/Time Associated Diagnosis Comments [facility] RESULTS Routine 05/05/2025 HD KINETICS Routine 05/05/2025 CHEMISTRY Routine 05/05/2025 CHEMISTRY Routine 05/05/2025 POST CHEMISTRY Routine 05/05/2025 HEMATOLOGY Routine 05/05/2025 HEMATOLOGY Routine 04/28/2025 HEMATOLOGY Routine 04/21/2025 HEMATOLOGY Routine 04/14/2025 HEMATOLOGY Routine 04/07/2025 [facility] RESULTS Routine 03/31/2025 IMMUNO CHEMISTRY Routine 03/31/2025 CHEMISTRY Routine 03/31/2025 HD KINETICS Routine 03/31/2025 POST CHEMISTRY Routine 03/31/2025 CHEMISTRY Routine 03/31/2025 HEMATOLOGY Routine 03/31/2025 HEMATOLOGY Routine 03/24/2025 HEMATOLOGY Routine 03/17/2025 HEMATOLOGY Routine 03/10/2025 [facility] LAB RESULTS Routine 03/03/2025 HEMATOLOGY Routine 03/03/2025 IMMUNO CHEMISTRY Routine 03/03/2025 CHEMISTRY Routine 03/03/2025 HD KINETICS Routine 03/03/2025 POST CHEMISTRY Routine 03/03/2025 CHEMISTRY Routine 03/03/2025 HEMATOLOGY Routine 02/24/2025 from Last 3 Months Results * HD KINETICS (05/05/2025) Only the most recent of3 resultswithin the time period is included. % Urea Reduction 78 65 - 80 % [facility] 05/05/2025 05/07/2025 2:3 5 AM CDT Narrative [facility] - 05/07/2025 Unless otherwise specified, test(s) performed at: [facility], [address] [place] [address], [place] [address] INCOME TAX EXPERT: Shelton Vidales M.D., Ph.D For any questions, please call customer service at FREQUENCY:MONTHLY Resulting Agency Comment Specimen source: Plasma us Elver Juarez MD LAB BLOOD ORDERABLES Final Re sult [facility] See order comments or contact performing lab Unknown, [place] * POST CHEMISTRY (05/05/2025) Only the most recent of3 resultswithin the time period is included. BUN Post Dialysis 16 6 - 19 mg/dL [facility] 05/05/2025 05/07/2025 2:3 5 AM CDT [facility]ative [facility] Unless otherwise specified, test(s) performed at: [facility], [address] [place] [address], [place] [address] INCOME TAX EXPERT: Shelton Vidales M.D., Ph.D For any questions, please call customer service at FREQUENCY:MONTHLY Resulting Agency Comment Specimen source: Plasma Elver Juarez MD LAB BLOOD ORDERABLES Final Re sult [facility] See order comments or contact performing lab Unknown, [place] * (ABNORMAL) HEMATOLOGY (05/05/2025) Only the most recent of11 resultswithin the time period is included. Neutrophils 63.0 40.0 - 75.0 % [facility] Lymphocytes Relative 22.4 19.0 - 48.0 % [facility] Monocytes 7.7 3.0 - 10.0 % [facility] Eosinophils Relative 3.2 0.0 - 7.0 % [facility] Basophils Relative 0.8 0.0 - 1.5 % [facility] FAMILIA 2.8 0.0 - 4.0 % [facility] WBC 6.84 4.80 - 10.80 1000/mcL [facility] RBC 3.95(L) 4.70 - 6.10 mill/mcL [facility] Hematocrit 38.2(L) 42.0 - 52.0 % [facility] MCV 97 80 - 100 fl [facility] MCH 30.6 27.0 - 31.0 pg [facility] MCHC 31.6 30.0 - 36.0 g/dL [facility] RDW 15.5(H) 11.5 - 14.5 % [facility] Hemoglobin 12.1(L) 14.0 - 18.0 g/dL [facility] Hemoglobin x 3 36.3(L) 42.0 - 54.0 % [facility] Platelets 160 130 - 400 1000/mcL [facility] 05/05/2025 05/06/2025 5:2 5 PM CDT Narrative [facility] - 05/06/2025 Unless otherwise specified, test(s) performed at: [facility], [address] [place] [address], [place] [address] INCOME TAX EXPERT: Shelton Vidales M.D., Ph.D For any questions, please call customer service at FREQUENCY:MONTHLY Resulting Agency Comment Specimen source: Blood Elver Juarez MD LAB BLOOD ORDERABLES Final Re sult [facility] See order comments or contact performing lab Unknown, [place] * (ABNORMAL) [facility] Chemistry (05/05/2025) Only the most recent of6 resultswithin the time period is included. BUN 72(H) 6 - 19 mg/dL [facility] Creatinine 7.26(H) 0.60 - 1.30 mg/dL [facility] BUN/Creatinine Ratio 9.9(L) 10.0 - 20.0 [facility] Sodium 138 136 - 145 mEq/L [facility] Potassium 3.8 3.5 - 5.1 mEq/L [facility] Chloride 100 96 - 108 mEq/L [facility] Bicarbonate (CO2) 22 20 - 31 mEq/L [facility] Calcium 9.2 8.7 - 10.4 mg/dL [facility] Comment: Please note change in reference range. Corrected Calcium 9.4 8.7 - 10.4 mg/dL [facility] Comment: Corrected Calcium is not equivalent to measured Ionized Calcium. Phosphorus 5.1(H) 2.6 - 4.5 mg/dL [facility] Calcium Phosphorus Product 47 0 - 54 [facility] Calcium Phosporus Product, Cor 48 0 - 54 [facility] Alkaline Phosphatase 66 40 - 129 U/L [facility] Albumin 3.7 3.5 - 5.2 g/dL [facility] Magnesium 2.2 1.6 - 2.6 mg/dL [facility] Ferritin 1,236(H) 22 - 322 ng/mL [facility] Iron 162(H) 45 - 160 mcg/dL [facility] UIBC 30(L) 155 - 355 mcg/dL [facility] TIBC 192 185 - 515 mcg/dL [facility] Iron Saturation (TSat) 84(H) 20 - 55 % [facility] 05/05/2025 05/07/2025 4:0 6 AM CDT Narrative [facility] - 05/07/2025 Unless otherwise specified, test(s) performed at: [facility], [address] [place] [address], [place] [address] INCOME TAX EXPERT: Shelton Vidales M.D., Ph.D For any questions, please call customer service at FREQUENCY:MONTHLY Resulting Agency Comment Specimen source: Serum Elver Juarez MD LAB BLOOD ORDERABLES Final Re sult Performing Organization Address [facility] Co de Phone Number [facility] See order comments or contact performing lab Unknown, [place] * [facility] Results (05/05/2025) Only the most recent of3 resultswithin the time period is included. Pathologist [facility] WSTDKT/V 2.6 [facility] spKt/V Gotch 1.73 [facility] [place] eNPCR 1.20 [facility] eKt/V [facility] nPCR_HD 1.28 [facility] eKdrt/V 1.50 [facility] eKt/V ([place]) 1.49 [facility] PCR 86.43 [facility] spKt/V (Daugirdas II) 1.71 [facility] 05/05/2025 05/05/2025 [facility] Ordering Provider LAB BLOOD ORDERABLES Final Result Performing Organization Address [facility] de Phone Number [facility] Contact Performing lab Unknown, [place] * IMMUNO CHEMISTRY (03/31/2025) Only the most recent of2 resultswithin the time period is included. Pathologist [facility] Hep B Surface Ag Negative Negative [facility] Hepatitis C Antibody Nonreactive Nonreactive [facility] Comment: No HCV antibody detected. The above test result was obtained using [employer] IM chemiluminescent method. Results obtained with different assay methods or kits cannot be used interchangeably. S/CO Ratio <0.02 0.00 - 0.79 [facility] Comment: s/co ratio Interpretation Supplemental testing <0.80 Nonreactive No further testing required. 0.80-0.99 Equivocal HCV RNA Quantitative Real-Time PCR is recommended. 1.00->11.00 Reactive HCV RNA Quantitative Real-Time PCR is recommended to distinguish active from resolved cases. 03/31/2025 04/01/2025 8:4 6 PM CDT Narrative Resulting Agency Comment Specimen source: Plasma Elver Juarez MD LAB BLOOD ORDERABLES Final Re sult [facility] See order comments or contact performing lab Unknown, [place] from Last 3 Months Insurance Medicare [id number] Medicare
--- OUTSIDE RECORDS SUMMARY | 2025-05-17 13:57 | XMS_ITS | Encounter Summary ---
Author Organization [facility] Address [address] [place] [address]. [place] [address] Care Team Providers Care Home Health Care Physician Name Role Phone Janet Villarreal MD Unavailable Unavaila ble Hung Sigala MD Unavailable + [phone] Janet Villarreal MD Unavailable Unavaila ble No Ref-Primary, Physician Primary Care Provider Mary Goodwin MD Primary Care Provider + [phone] Peter Bedoya MD Unavailable [facility] Unavailabl e Reason for Visit * Reason Comments Medication Refill Encounter Details Date Type Department Care Team (Late st Contact Info) Description 03/25/[address] [facility] [place] 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 Gender Identity Not on file Sexual Orientation Not on file documented as of this encounter Plan of Treatment Not on file documented as of this encounter Visit Diagnoses Diagnosis AAA (abdominal aortic aneurysm) without rupture Abdominal aneurysm without mention of rupture Thoracic ascending aortic aneurysm Thoracic aneurysm without mention of rupture Essential hypertension Unspecified essential hypertension documented in this encounter Care Teams Home Health Care Physician Relationship Specialty Start Date End Date No Ref-Primary, Physician PCP - General 03/05/24 06/10/24 [facility] [address] [place] [phone] PCP - General Family Practice 06/11/24 Janet Villarreal MD Assigned PCP 10/05/21 12/19/24 Hung Sigala MD [address] [place] [address] Assigned Heart and Vascular Provider 02/11/22 Janet Villarreal MD Assigned Pain Medication Provider 04/20/23 10/23/23 Peter Bedoya MD [facility] [place], [place] [id number] Assigned Musculoskeletal Provider 06/22/24 [facility] [address] [place] [address] Assigned PCP 12/20/24 documented as of this encounter
--- OUTSIDE RECORDS SUMMARY | 2025-05-17 13:57 | XMS_ITS | Continuity of Care Document ---
Author Organization [facility] Address [address] [place] [address] Insurance Providers Payer Plan Claims Address Claims Phone Policy Number Group Number Relation Employer Guarantor Name Guarantor Guarantor Address Guarantor Phone MEDIC ARE [address], [place] [address] tel:[phone] [id number] Self JAGUAR ROBLES [id number] [facility] [address] [facility] [place] [address] MEDIC ARE [address] [address] tel:[phone] Self JAGUAR Jennifer ROBLES 1940 [id number] [place] [place] [address] [facility] [address], [place] [address] tel:[phone] Self JAGUAR ROBLES 1940 [address] [place] [address] Problems Unknown Problems Results No Results Allergies, adverse reactions, alerts No known allergies and adverse reactions Medications No administered medications reported Vital Signs No vital signs reported Social History No smoking Hx information available Encounters Type CPT Code Date Location Provider Indication s Telephone assessment and management service provided by a qualified nonphysician [id number] 09/26/2023 03:54 PM [facility] [address], [address], [address] Reason: Patient is scheduled for a visit on 10/10/23 with Maria Luisa Queen at [facility], in person for a 5D visit. - Status: Completed
--- OUTSIDE RECORDS SUMMARY | 2025-05-17 13:57 | XMS_ITS | Clinical Summary ---
Author Organization [facility] Address [address] [place] [address] Care Team Providers Care Gre Instructor Name Role Phone Mary Goodwin M.D. Primary Care Provider [phone] Source Comments Patient records contain information from all sites at [facility]. For routine questions regarding patient records, call [phone] during business hours, M-F 8:00 AM - 5:00 PM Central Time. Record requests for emergency care only can be directed to [phone] at any time.[facility] Allergies Active Allergy Reactions Criticality Noted Date Comments Arb-Angiotensin Receptor Antagonist Anxiety,Other (see comments) Low 12/26/2015 PCP concerned about kidneys PCP concerned about kidneys PCP concerned about kidneys PCP concerned about kidneys Lisinopril Other (see comments) 01/05/2015 PCP concerned about kidneys Other reaction(s): Other (see comments) PCP concerned about kidneys PCP concerned about kidneys Contraindication Contraindication PCP concerned about kidneys Metformin Other (see comments) 01/05/2015 PCP stopped due to ?? kidney Nsaids (Non-Steroidal Anti-Inflammatory Drug) Other (see comments) 01/05/2015 Not allergy was warned against Other reaction(s): Other (see comments) Contraindication Not allergy was warned against Not allergy was warned against Not allergy was warned against Not allergy was warned against Not allergy was warned against Contraindication Not allergy was warned against Serotonin 5ht-3 Antagonists Anxiety,Other (see comments) Low 12/26/2015 PCP concerned about kidneys PCP concerned about kidneys PCP concerned about kidneys Medications * This document contains information received from the source organization and may not represent a complete record from that organization. rtkskrhd-[id number] rb 149-hyal ac (Glucos Chond Cplx Advanced) 750 mg-100 mg- 125 mg-1.65 mg tablet Take 1 capsule by mouth every 12 (twelve) hours. Active aspirin [address] tablet Take 81 mg by mouth daily. Active Lactobacillus acidophilus (PROBIOTIC ORAL) Take 1 capsule by mouth daily. Active melatonin 5 mg tablet Take 5 mg by mouth at bedtime. 1 Active sevelamer carbonate (RENVELA) 800 mg tablet Take 2 tablets by mouth 3 (three) times a day with meals. With / during meals and snacks 2 Active midodrine (PROAMATINE) 5 mg tablet TAKE 4 TABLETS BY MOUTH THREE TIMES A WEEK. TAKE 2 TABLETS BEFORE AND 2 TABLETS DURING DIALYSIS. 3 Active b complex-vitamin c-folic acid 0.8 mg tablet Take 1 tablet by mouth daily. 3 Active UNABLE TO FIND Apply 1 each topically 3 (three) times a week. Med Name: Lidocaine 10% cream. For use prior to dialysis. Active gabapentin (NEURONTIN) 300 mg capsule Take 1 capsule (300 mg total) by mouth at bedtime. 90 capsule 3 4 Active amitriptyline (ElaviL) 50 mg tablet Take 1 tablet (50 mg total) by mouth at bedtime. 90 tablet 3 4 Active finasteride (Proscar) 5 mg tablet Take 1 tablet (5 mg total) by mouth daily. 90 tablet 3 4 Active levothyroxine (Synthroid) 175 mcg tablet Take 1 tablet (175 mcg total) by mouth daily before morning meal. 90 tablet 3 4 Active NaCl 0.9% parenteral solution 1,000 mL with heparin (porcine) 1,000 unit/mL solution 1,000 Units Heparin Sodium (Porcine) 1,000 Units/mL Systemic 4 07/14/20 25 Active Linzess 72 mcg capsule Take 1 capsule (72 mcg total) by mouth daily. 90 capsule 3 5 Active methoxy peg-epoetin beta (MIRCERA INJ) 150 mcg by intra-catheter route 2 (two) times a week. 5 11/15/19 26 Active cholecalciferol, vitamin D3, (DIALYVITE VITAMIN D ORAL) Take 1 tablet by mouth 3 (three) times a week. Active nitroglycerin (Nitrostat) 0.[address] 1 tablet (0.4 mg total) under the tongue every 5 (five) minutes as needed for chest pain. May repeat every 5 minutes up to 3 doses. 100 tablet 11 5 Active losartan (Cozaar) 25 mg tablet Take 0.5 tablets (12.5 mg total) by mouth daily. 45 tablet 3 5 Active atorvastatin (Lipitor) 20 mg tablet Take 1 tablet (20 mg total) by mouth at bedtime. 90 tablet 3 5 Active clopidogreL (Plavix) 75 mg tablet Take 1 tablet (75 mg total) by mouth daily. 90 tablet 3 5 Active metoprolol tartrate (Lopressor) 25 mg tablet Take 0.25 tablets (6.25 mg total) by mouth 2 (two) times a day. 45 tablet 3 5 Active hydrOXYzine (Atarax) 25 mg tablet TAKE 1 TABLET BY MOUTH 2 TIMES DAILY NEEDED FOR ANXIETY 100 tablet 3 5 Active traMADoL (Ultram) 50 mg tabletIndication s:Chronic Pain/Nonacute Pain Take 1 tablet (50 mg total) by mouth every 8 (eight) hours as needed for pain Indications: Chronic Pain/Nonacute Pain. 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 Primary Osteoarthritis Knee Bilateral 07/09/2023 History Of Falling 03/02/2023 Hyperparathyroidism Renal Secondary 02/13/2022 Anxiety 05/27/2021 Gastroesophageal Reflux Disease 05/27/2021 Dialysis Dependent 05/26/2021 Overview (05/21/2024): Started dialysis in June of 2021. Has a fistula. 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 Resolved Problems Problem Noted Date Diagnosed Date Resolved Date Hypertensive Heart Disease W ithout Heart Failure 11/12/2023 11/12/2023 Fracture T7-8 Other Closed Initial 11/07/2022 03/02/2023 Arthritis Rheumatoid 09/27/2022 023 Diabetes Mellitus Type 2 Without Complication 09/27/2011/12/2022 Defect Coagulation 02/13/2022 Spinal Cord Disease 02/13/2022 11/12/19 Chronic Kidney Disease Stage 5 Glomerular Filtration Rate Less Than 15 10/17/2021 03/02/2023 Overview (11/06/2022): Pt on dialysis 3 times per week. He has seen JEFFREYDr. Homero, nephrology. COVID-19 Infection 06/07/2021 4 Repeated Falls 05/29/2021 03/02/2023 Failure Renal End Stage 05/27/2021 06/0 11/2022 Rheumatism Unspecified 05/27/202111/12 Morbid Obesity 05/26/2021 03/22/2023 Urinary Tract Infection Site Not Specified 05/26/2021 11/12/2022 Other Hypotension 05/26/2021 11/12/2022 Chronic Kidney Disease Stage 4 Glomerular Filtration Rate 15-29 05/19/2021 11/12/2022 Failure Renal Acute (Acute Kidney Injury) 05/19/2021 11/12/2022 Coronary Artery Disease (Unspecified) 08/14/2018 11/12/2022 Diabetes Mellitus Type 2 Wit h Diabetic Chronic Kidney Disease 08/14/2018 03/02/2023 Spinal Cord Disease 07/29/2018 03/02/20 23 Hypertension Essential Primary 05/27/2018 11/12/2022 Encounters Date Type Department Care Team Description 05/17/2025 Refill Department of Family Medicine, [facility], [address] [address] Mary Goodwin M.D. Med Refill 05/17/2025 Refill Department of Family Medicine, [facility], in [address] [phone] Mary Goodwin M.D. Med Refill 05/16/2025 Refill Department of Family [facility], [facility], [address] [phone] Mary Goodwin M.D. Med Refill 04/27/2025 11:30 AM CDT Office Visit Department of Otorhinolaryngology in [address] [phone] Brad Acosta M.D. Cholesteatoma External Ear Bilateral (Primary Dx); Cerumen Impacted Bilateral; Unspecified Chronic Otitis Externa Right Ear Discharge Disposition: Home or Self Care 04/06/2025 Clinical Communication Department of Family Medicine, [facility], in [address] [phone] Mary Goodwin M.D. 04/04/2025 Refill Department of Family Medicine, [facility], [address] [phone] Mary Goodwin M.D. Med Refill 04/01/2025 Refill Department of Family Medicine, [facility], in [address] [phone] Mary Goodwin M.D. Med Refill 02/16/2025 Results Follow-Up Department of Dermatology in [address] [phone] Edmundo Arriola M.D. Dermatopathology from Last 3 Months Immunizations Immunization Administration Dates Next Due H1N1 All Forms 06/30/2009 Influenza Split Preservative Free ID 07/04/2016 Influenza TIV (IM) 07/04/2016 Influenza high dose QV(65 ye ars or older) (PF) 07/06/2022,07/07/2021 Influenza, Quadrivalent, Adj uvanted, Preservative Free 06/28/2021 Influenza, Unspecified 07/06/2022,2020,06/30/2021,2019,07/07/2019,06/30/2018,10/15/2017,1 ,06/30/2016,06/30/2015, 014,06/30/2013,06/30/2012,06/30/2011,,07/06/2010,06/30/2009,06/30/20 08,06/30/2007,06/30/2006,07/25/2005,09/2003,06/30/2002,08/30/2001 PCV13 07/07/2021,02/28/2014,12/29/2010 PPD Test 06/04/2021,05/28/2021 PPSV23 11/27/2021,02/28/2015 Pneumococcal, Unspecified 06/30/2004,06/30/2001 SARS-COV-2 (COVID-19) - MODE RNA BIVALENT(Discontinued) 07/06/2022 SARS-COV-2 (COVID-19) - MODERNA(Discontinued) 11/20/2020,11/08/2020 Tdap 11/06/2022 RIKKI 03/30/2014 influenza vaccine (FLUBLOK) (18 years or older) (PF) 07/15/2024 influenza vaccine QV(FLUBLOK ) (18 years or older) (PF) 07/10/2023,06/21/2020,07/19/2015 influenza vaccine quad (FLUZONE/FLUARIX) (6 months and older)(PF) 06/21/2020,07/19/2015 Family History Medical History Relation Name Comments Alcohol abuse Brother LH Alcohol abuse Father Usha Relation Name Status Comments Brother LH Daughter Alive Father Usha Son Alive Social History Tobacco Use Types Packs/Day Years [...] things needed for daily living? No 04/20/2025 [facility] Utilities Answer Date Recorded In the past 12 months has e electric, gas, oil, or water company threatened to shut off services in your home? No 04/20/2025 Depression Answer Date Recor ded PHQ-9 Total Score (max 27) 2 11/12 Housing Stability Answer Date Recorded What is your living situation today? I have a [facility] place to live 04/20/2025 Education Answer Date Recorded What is the highest level of school you have completed or the highest degree you have received? 12th grade 12/03/2022 Sex and Gender Information Value Date Recorded Sex Assigned at Male 12/03/2022 5:23 PM ROTARY CUTTER OPERATOR Legal Sex Male 3:43 PM CDT Gender Identity Male 12/03/2022 5:23 PM ROTARY CUTTER OPERATOR Sexual Orientation Straight 12/03/2022 5: 23 PM ROTARY CUTTER OPERATOR Last Filed Vital Signs Vital Sign Reading Time Taken Comments Blood Pressure 100/48 02/11/2025 8:12 AM CDT Pulse 65 02/11/2025 8:12 AM CDT Temperature 36.8 C (98.2 F) 11/26/2024 3:39 PM ROTARY CUTTER OPERATOR Respiratory Rate 20 11/26/2024 3:39 PM ROTARY CUTTER OPERATOR Oxygen Saturation 95% 01/26/2025 12:49 PM CDT Inhaled Oxygen Concentration - - Weight 103 kg (226 lb 10.1 oz) 01/26/2025 12:49 PM CDT Height 189.1 cm (6' 2.45) 11/26/2024 3:39 PM CS T Body Mass Index 28.75 11/26/2024 3:39 PM ROTARY CUTTER OPERATOR Plan of Treatment Upcoming Encounters Date Type Department Care Team (Late st Contact Info) Description 05/25/2025 4:30 PM CDT Appointment Department of Laboratory Medicine in [address] [phone] Mary Goodwin M.D. [address] [place] [phone] 05/27/2025 9:00 AM CDT Office Visit Department of Family Medicine, [facility], in [address] [phone] Mary Goodwin M.D. [address] [place] [phone] Discharge Disposition: Home or Self Care 07/26/2025 3:15 PM CDT Office Visit Department of Orthopedic Surgery in [address] [phone] Elsa Villarreal D.P.M. [address] [place] [phone] Discharge Disposition: Home or Self Care Health Maintenance Due Date Last Done Comments RSV vaccine - (32-36 weeks) or 60+ years (1 - 1-dose 75+ series) 2013 Varicella Vaccines (2 of 2 - 13+ 2-dose series) 04/27/2014 03/30/2014 Zoster Vaccines (1 of 2) 05/25/2014 COVID-19 Vaccine ( season) 2024 07/06/2022, 02/13/2022, 08/09/2021, Additional history exists Visit: Chronic Disease, age 18+ 11/12/2024 11/12/2023, 03/01/2023 Influenza Vaccine (#1) 2025 , 07/10/2023, 07/06/2022, Additional history exists Creatinine Level (Kidney Function Test) 11/20/2025 11/20/2024, 05/20/2024, 09/20/2023, Additional history exists Potassium Level 11/20/2025 11/20/2024, 05/01, 09/20/2023, Additional history exists Sodium Level 11/20/2025 11/20/2024, 05/01, 09/20/2023, Additional history exists Visit: Medicare Annual Wellness 11/27/2025 11/26/2024, 05/21/2024 DTaP,Tdap,and Td Vaccines (2 - Td or Tdap) 11/06/2032 11/06/2022 Pneumococcal vaccine (50+ years) Completed 11/27/2021, 07/07/2021, 02/28/2015, Additional history exists Depression Screening (Annual PHQ-2) Completed 11/26/2024, 11/20/2024 Fall Risk Screen (Annual) Completed 11/26/2024 IPV Vaccines Aged Out No longer eligi ble based on patient's age to complete this topic Medical Devices Implanted Type Area Weight Count Operator Device Identifier Shelf Expiration Date Model / Serial / Lot Cardiac Stent Cardiac Stent Arterial Description:2 stents in left anterior descending artery Procedures Procedure Name Priority Date/Time Associated Diagnosis Comments COMPREHENSIVE METABOLIC PANEL, S/P STAT 11/20/2024 8:35 AM ROTARY CUTTER OPERATOR from Last 3 Months or Most Recently Relevant to Health Maintenance Results * (ABNORMAL) Comprehensive Metabolic Panel (11/20/2024 8:35 AM ROTARY CUTTER OPERATOR) Pathologist [facility] Potassium, P 4.7 3.6 - 5.2 mmol/L 11/20/2024 8:52 AM ROTARY CUTTER OPERATOR CNFL Sodium, P 133(L) 135 - 145 mmol/L 11/20/2024 8:52 AM ROTARY CUTTER OPERATOR CNFL Chloride, P 94(L) 98 - 107 mmol/L 11/20/2024 8:52 AM ROTARY CUTTER OPERATOR CNFL Bicarbonate, P 22 22 - 29 mmol/L 11/20/2024 8:52 AM ROTARY CUTTER OPERATOR CNFL Anion Gap, P 17(H) 7 - 15 11/20/2024 8:52 AM ROTARY CUTTER OPERATOR CNFL BUN (Blood Urea Nitrogen), P 52(H) 8 - 24 mg/dL 11/20/2024 8:52 AM ROTARY CUTTER OPERATOR CNFL Creatinine 6.49(H) 0.74 - 1.35 mg/dL 11/20/2024 8:52 AM ROTARY CUTTER OPERATOR CNFL Estimated GFR (eGFR) <15(L) >=60 mL/min/BS A 11/20/2024 8:52 AM ROTARY CUTTER OPERATOR CNFL Comment: Estimated GFR calculated using the 2020 CKD_EPI creatinine equation. Calcium, Total, P 9.1 8.8 - 10.2 mg/dL 11/20/2024 8:52 AM ROTARY CUTTER OPERATOR CNFL Glucose, P 103 70 - 140 mg/dL 11/20/2024 8:52 AM ROTARY CUTTER OPERATOR CNFL Protein, Total, P 6.6 6.3 - 7.9 g/dL 11/20/2024 8:52 AM ROTARY CUTTER OPERATOR CNFL Albumin, P 3.8 3.5 - 5.0 g/dL 11/20/2024 8:52 AM ROTARY CUTTER OPERATOR CNFL Aspartate Aminotransferase (AST), P 108(H) 8 - 48 U/L 11/20/2024 8:52 AM ROTARY CUTTER OPERATOR CNFL Alkaline Phosphatase, P 92 40 - 129 U/L 11/20/2024 8:52 AM ROTARY CUTTER OPERATOR CNFL Alanine Aminotransferase (ALT), P 60(H) 7 - 55 U/L 11/20/2024 8:52 AM ROTARY CUTTER OPERATOR CNFL Bilirubin, Total, P 0.4 0.0 - 1.2 mg/dL 11/20/2024 8:52 AM ROTARY CUTTER OPERATOR CNFL Blood (Blood, Venous) 11/20/2024 8:35 AM ROTARY CUTTER OPERATOR 11/20/2024 8:35 AM ROTARY CUTTER OPERATOR Alexandre Haji APRN, C.N.P., M.S.N. LAB BLOOD ADD-ON Final Result [facility] [address] [place] [phone], [facility] CNFL [facility] in [address] [address] from Last 3 Months or Most Recently Relevant to Health Maintenance Insurance [facility]ARE [facility] Advance Directives For more information, please contact: [phone] * Full Code (Latest Code Status on File) Date Activated Date Inactivated Comments 11/07/2022 4:51 AM 11/08/2022 3:47 PM Question Answer Comments Full Code: Not Discussed Due to: Not medically appropriate Care Teams Gre Instructor Relationship Specialty Start Date End Date Mary Goodwin M.D. [address] [place] [phone] PCP - General 02/14/24
--- OUTSIDE RECORDS SUMMARY | 2025-05-17 13:58 | XMS_ITS | Encounter Summary ---
Author Organization [facility] Address [address] [place] [address] Care Team Providers Care Pencils Washer Name Role Phone [facility] Primary Ca re Provider Janet Villarreal MD Unavailable Unavaila Hung Arreguin MD Unavailable + [phone] Janet Villarreal MD Primary Care Provider Un available Janet Villarrela MD Unavailable Unavaila josé miguel No Ref-Primary, Physician Primary Care Provider Mary Goodwin MD Primary Care Provider [phone] Peter Bedoya MD Unavailable [facility] Unavailabl e Encounter Details Date Type Department Care Team (Late st Contact Info) Description 02/25/2022 MyC Medical Advice [facility] [address] [place] [address] Janet Villarreal MD Social History Tobacco Use Types Packs/Day Years [...] on file Legal Sex Male 6:11 PM BATCH MIXER 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 No / Unsure 02/13/2022 9:56 AM CDT documented as of this encounter Miscellaneous Notes * Telephone Encounter - Helen Schneider RN - 02/27/2022 9:58 AM CDT Will forward to Dr. Villarreal for advisal. documented in this encounter Plan of Treatment Not on file documented as of this encounter Visit Diagnoses Not on filedocumented in this encounter Care Teams Pencils Washer Relationship Specialty Start Date End Date Clinic - [facility] [address] [address] PCP - General 10/17/21 08/22/22 [place] [address] [address] PCP - General Internal Medicine 08/23/22 01/23/23 No Ref-Primary, Physician PCP - General 03/05/24 06/10/24 Mary Goodwin MD [facility]Department Of Family Medicine [address] [place] [phone] PCP - General Family Practice 06/11/24 [place] [address] [address] Assigned PCP 10/05/21 12/19/24 Hung Sigala MD [address] [address] Assigned Heart and Vascular Provider 02/11/22 Janet Villarreal MD Assigned Pain Medication Provider 04/20/23 10/23/23 Peter Bedoya MD [address] [place] [address] Assigned Musculoskeletal Provider 06/22/24 [facility] [address] [place] [address] Assigned PCP 12/20/24 documented as of this encounter
--- OUTSIDE RECORDS SUMMARY | 2025-05-17 13:58 | XMS_ITS | Clinical Summary ---
Author Organization [facility] Address [address] [place] [address] Care Team Providers Care Lumpia Wrapper Maker Name Role Phone Hung Sigala MD Unavailable +- [phone] Mary Goodwin MD Primary Care Provider [phone] Peter Bedoya MD Unavailable [facility] Unavailabl e Allergies Active Allergy Reactions Criticality Noted Date Comments 5ht3 Receptor Antagonists Anxiety,Other (See Comments),Unknown Low 12/26/2015 PCP concerned about kidneys PCP concerned about kidneys PCP concerned about kidneys Lisinopril Other (See Comments) 07/26/2021 Contraindication Metformin 07/26/2021 Other reaction(s): Unknown Contraindication Nsaids Other (See Comments),Unknown 01/05/2015 Contraindication Not allergy was warned against Not allergy was warned against Not allergy was warned against Medications glucosamine-chondr oitinoitin 4999-6697 MG/30ML LIQD Take 1 tablet by mouth daily Active aspirin (ASA) 81 MG EC tablet Take 1 tablet by mouth daily 1 Active lidocaine-prilocai ne (EMLA) 2.5-2.5 % external cream as needed 1 Active Probiotic Product (PROBIOTIC-10 PO) Take 1 capsule by mouth daily Active gabapentin (NEURONTIN) 300 MG capsule Take 300 mg by mouth daily 2 Active sevelamer carbonate (RENVELA) 800 MG tablet Take 1 tablet by mouth 3 times daily (with meals) 2 Active hydrOXYzine (ATARAX) 25 MG tabletIndications: Anxiety Take 1 tablet (25 mg) by mouth 2 times daily as needed for anxiety 90 tablet 3 2 Active levothyroxine (SYNTHROID/LEVOTHR OID) 137 MCG tabletIndications: Acquired hypothyroidism,Enc ounter for therapeutic drug monitoring Take 1 tablet (137 mcg) by mouth daily Dose adjustment 90 tablet 3 2 Active tamsulosin (FLOMAX) 0.4 MG capsuleIndications :Benign prostatic hyperplasia without lower urinary tract symptoms Take 1 capsule (0.4 mg) by mouth daily 90 capsule 3 2 Active amitriptyline (ELAVIL) 50 MG tabletIndications: Anxiety,Sleep disorder Take 1 tablet (50 mg) by mouth At Bedtime 90 tablet 3 2 Active LINZESS 72 MCG capsuleIndications :Other irritable bowel syndrome Take 1 capsule (72 mcg) by mouth daily 90 capsule 1 3 Active traMADol (ULTRAM) 50 MG tabletIndications: Rheumatoid arthritis involving multiple sites, unspecified whether rheumatoid factor present (H) Take 2 tablets (100 mg) by mouth 2 times daily as needed for moderate pain (4-6) 60 tablet 3 3 Active finasteride (PROSCAR) 5 MG tabletIndications: Benign prostatic hyperplasia without lower urinary tract symptoms Take 1 tablet (5 mg) by mouth daily 90 tablet 2 3 Active atorvastatin (LIPITOR) 20 MG tabletIndications: Hyperlipidemia LDL goal <70 Take 1 tablet (20 mg) by mouth at bedtime 90 tablet 3 4 Active clopidogrel (PLAVIX) 75 MG tabletIndications: ASCVD (arteriosclerotic cardiovascular disease) Take 1 tablet (75 mg) by mouth daily 90 tablet 3 4 Active losartan (COZAAR) 25 MG tabletIndications: Essential hypertension TAKE ONE-HALF TABLET(12.5 MG) BY MOUTH DAILY 45 tablet 3 4 Active metoprolol tartrate (LOPRESSOR) 25 MG tabletIndications: Essential hypertension Take 0.25 tablets (6.25 mg) by mouth 2 times daily 45 tablet 3 4 Active Active Problems Problem Noted Date Diagnosed Date Rheumatoid arthritis involvi ng multiple sites, unspecified whether rheumatoid factor present 09/27/2022 Type 2 diabetes mellitus wit hout complication, without long-term current use of insulin 09/27/2022 Spinal cord disease 02/13/2022 Morbid obesity 02/13/2022 Secondary hyperparathyroidism of renal origin Assessment & Plan (02/13/2022 11:24 AM CDT): Followed by Nephrology Coagulation defect, unspecified 02/13/2022 CKD (chronic kidney disease) stage 5, GFR less than 15 ml/min 10/17/2021 Overview (10/17/2021): Pt on dialysis 3 times per week. He has seen JEFFREYDr. Homero, nephrology. Immunizations Immunization Administration Dates Next Due COVID-19 Monovalent 18+ (Moderna) 2020,11/20/2020,11/08/2020,2020 COVID-19 Monovalent Booster 18+ (Moderna) 02/13/2022 Flu, Unspecified 06/30/2021, 0,07/07/2019,2017,10/15/2017,06/30/2016,06/30/2011,1 ,07/25/2005,06/30/2004, 002,08/30/2001 Influenza (H1N1) 06/30/2009 Influenza (IIV3) PF 07/04/2016 Influenza (intradermal) 07/04/2016 Influenza Vaccine 18-64 (Flublok) 06/21/2020, Influenza Vaccine 65+ (Fluzone HD) 07/07/2021 Influenza Vaccine >6 months,quad, PF 06/21/2020, 07/19/2015 Pneumo Conj 13-V (2010&after) 07/07/2021, 014,12/29/2010 Pneumococcal 23 valent 11/27/2021,02/28/2015 Pneumococcal, Unspecified 06/30/2004,06/30/2001 Varicella (Varivax) 03/30/2014 Social History Tobacco Use Types Packs/Day Years [...] on file 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 [employer] Gender Identity Not on file Sexual Orientation Not on file Last Filed Vital Signs Vital Sign Reading Time Taken Comments Blood Pressure 81/44 03/31/2024 2:33 PM CDT Pulse 68 03/31/2024 2:33 PM CDT Temperature 36.5 C (97.7 F) 02/13/2022 11:00 AM CDT Respiratory Rate 14 02/13/2022 11:00 AM CDT Oxygen Saturation 98% 03/31/2024 2:33 PM CDT Inhaled Oxygen Concentration - - Weight 108 kg (238 lb) 02/13/2022 11:00 AM CDT Height 191.8 cm (6' 3.5) 02/01/2022 10:58 AM CD T Body Mass Index 29.36 02/01/2022 10:58 AM CDT Plan of Treatment Health Maintenance Due Date Last Done Comments DIABETIC FOOT EXAM 1938 EYE EXAM 1938 MICROALBUMIN 1938 PARATHYROID 1938 PHOSPHORUS 1938 HEMOGLOBIN 1939 URINALYSIS 1939 HEPATITIS B VACCINE (1 of 3 - Risk Dialysis 4-dose series) 1958 ZOSTER VACCINE (1 of 2) 1988 RSV VACCINE (1 - 1-dose 75+ series) 2013 A1C 01/15/2022 10/17/2021, 04/2 12/2019, 12/30/2018 BMP 01/15/2022 10/17/2021 ANNUAL REVIEW OF HM ORDERS 01/23/2023 01/23/2022 FALL RISK ASSESSMENT 02/13/2023 02/13/2022, 10/17/19 22 TSH W/FREE T4 REFLEX 02/13/2023 02/13/2022, 10/17/2021, 10/17/2021, Additional history exists LIPID 05/30/2024 05/30/2023, 09/30, 01/22/2020, Additional history exists COVID-19 VACCINE ( season) 2024 07/06/2022, 02/13/2022, 08/09/2021, Additional history exists PHQ-2 (once per calendar year) 2024 03/31/2024, 02/13/2022, 01/23/2022, Additional history exists MEDICARE ANNUAL WELLNESS VISIT 05/21/2025 05/21/2024, 02/13/2022 INFLUENZA VACCINE (#1) 2025 , 07/06/2022, 07/06/2022, Additional history exists ADVANCE CARE PLANNING 03/05/2027 03/05/2022, 022 DTAP/TDAP/TD VACCINE (2 - Td or Tdap) 11/06/2032 11/06/2022 ALK PHOS Completed 10/17/2021 PNEUMOCOCCAL VACCINE 50+ YEARS Completed 11/27/2021, 07/07/2021, 02/28/2015, Additional history exists HPV VACCINE (No Doses Required) Completed MENINGITIS VACCINE Aged Out No longer eligible based on patient's age to complete this topic Procedures Procedure Name Priority Date/Time Associated Diagnosis Comments LIPOFIT BY NMR Routine 05/30/2023 8:50 AM CDT ASCVD (arteriosclerotic cardiovascular disease) TSH WITH FREE T4 REFLEX Routine 02/13/2022 12:14 PM CDT Acquired hypothyroidism COMPREHENSIVE METABOLIC PANEL Routine 10/17/2021 11:09 AM [employer]GER [employer] CKD (chronic kidney disease) stage 5, GFR less than 15 ml/min (H) ESRD (end stage renal disease) on dialysis (H) ASCVD (arteriosclerotic cardiovascular disease) Peripheral neuropathic pain Acquired hypothyroidism HEMOGLOBIN A1C Routine 10/17/2021 11:09 AM [employer] Peripheral neuropathic pain Elevated glucose from Last 3 Months or Most Recently Relevant to Health Maintenance Results * (ABNORMAL) LipoFit by NMR (05/30/2023 8:50 AM CDT) Total Cholesterol 125 <=199 mg/dL 06/01/2023 9:13 PM CDT [facility] Triglycerides 101 30 - 149 mg/dL 06/01/2023 9:13 PM CDT [facility] HDL Cholesterol 38(L) 40 - 59 mg/dL 06/01/2023 9:13 PM CDT [facility] LDL Cholesterol, Calc 67 <=129 mg/dL 06/01/2023 9:13 PM CDT [facility] HDL Particle Size, NMR 9.0 >=8.9 nm 06/01/2023 9:13 PM CDT [facility] Comment: INTERPRETIVE INFORMATION: HDL Particle Size, NMR Percentiles in Reference Population: 25th 50th 75th 8.6 8.9 9.3 VLDL Particle Size, NMR 43.7 <=46.7 nm 06/01/2023 9:13 PM CDT [facility] Comment: INTERPRETIVE INFORMATION: VLDL Particle Size, NMR Percentiles in Reference Population: 25th 50th 75th 44.3 46.7 50.2 LDL Particle Size, NMR 21.2 >=20.7 nm 06/01/2023 9:13 PM CDT [facility] Comment: INTERPRETIVE INFORMATION: LDL Particle Size, NMR Percentiles in Reference Population: 25th 50th 75th 19.6 20.7 22.5 Large HDL Particle Number, NMR 4.1(L) >=4.2 umol/L 06/01/2023 9:13 PM CDT [facility] Comment: INTERPRETIVE INFORMATION: Large HDL Particle Number, NMR Percentiles in Reference Population: 25th 50th 75th 2.0 4.2 7.3 HDL Particle Number NMR 21.0(L) >=33.0 umol/L 06/01/2023 9:13 PM CDT [facility] Comment: INTERPRETIVE INFORMATION: HDL Particle Number, NMR Percentiles in Reference Population: 25th 50th 75th 29.7 33.0 36.8 Large VLDL Particle Number, NMR <1.5 <=2.7 nmol/L 06/01/2023 9:13 PM CDT [facility] Comment: INTERPRETIVE INFORMATION: Large VLDL Particle Number, NMR Percentiles in Reference Population: 25th 50th 75th 0.9 2.7 7.0 Small LDL Particle Number, NMR 297 <=634 nmol/L 06/01/2023 9:13 PM CDT [facility] Comment: INTERPRETIVE INFORMATION: Small LDL Particle Number, NMR Percentiles in Reference Population: 25th 50th 75th [phone] LDL Particle Number, NMR 741 <=1135 nmol/L 06/01/2023 9:13 PM CDT [facility] Comment: REFERENCE INTERVAL: LDL Particle Number, NMR Low............... Less than 1136 Moderate.......... 1136 - 1449 Borderline High... 1450 - 1764 High.............. 1765 - 2186 Very High......... Greater than 2186 Percentiles in Reference Population: 20th 50th 80th 95th 1136 1450 1765 2186 Percentiles consistent with those from NCEP ATP III LDL-C cutpoints of 100 mg/dL(20th percentile) and 160 mg/dL (80th percentile). [facility] LipoFit by NMR See Note 2022 9:13 PM CDT [facility] Comment: Authorized individuals can access the [facility] Enhanced Report using the following link: [email or web address] INTERPRETIVE INFORMATION: LipoFit by NMR This test was developed and its performance characteristics determined by [facility]. It has not been cleared or approved by the US Food and Drug Administration. This test was performed in a CLIA certified laboratory and is intended for clinical purposes. Performed By: [facility] [address] [place] [address] Dispatcher [place]ugboat: Cuco Vallecillo MD, PhD CLIA Number: [id number] Blood BLOOD SPECIMEN / Unknown Venipuncture / Unknown 05/30/2023 8:50 AM CDT 05/30/2023 8:50 AM CDT us Hung Sigala MD LAB - BLOOD ORDERABL ES Edited Result - Final [employer] [address] [place] [address], [facility] [phone] * TSH with free T4 reflex (02/13/2022 12:14 PM CDT) TSH 1.28 0.40 - 4.00 mU/L 02/14/2022 4:34 PM CDT [facility] Blood STRUCTURE OF RIGHT UPPER LIMB / Unknown Venipuncture / Unknown 02/13/2022 12:14 PM CDT 02/13/2022 12:14 PM CDT Janet Villarreal MD LAB - BLOOD ORDERABLES Fi nal Result [facility] [address] [place] [address], [place] [phone] * Hemoglobin A1c (10/17/2021 11:09 AM [employer]) Pathologist [facility] Hemoglobin A1C 5.4 0.0 - 5.6 % 10/17/2021 11:19 AM [employer] LABORATORY Comment: Normal <5.7% Prediabetes 5.7-6.4% Diabetes 6.5% or higher Note: Adopted from ADA consensus guidelines. Blood STRUCTURE OF RIGHT UPPER LIMB / Unknown Venipuncture / Unknown 10/17/2021 11:09 AM [employer] 10/17/2021 11:10 AM [employer] us Janet Villarreal MD LAB - BLOOD ORDERABLES Fi nal Result LABORATORY [facility] [address] [facility] (no room number, 1st floor of clinic) [place] [address], [place] [phone] * (ABNORMAL) Comprehensive metabolic panel (10/17/2021 11:09 AM [employer]) Sodium 139 133 - 144 mmol/L 10/18/2021 7:22 AM [employer] [facility] Potassium 3.9 3.4 - 5.3 mmol/L 10/18/2021 7:22 AM [employer] [facility] Chloride 102 94 - 109 mmol/L 10/18/2021 7:22 AM [employer] [facility] Carbon Dioxide (CO2) 31 20 - 32 mmol/L 10/18/2021 7:22 AM [employer] [facility] Anion Gap 6 3 - 14 mmol/L 10/18/2021 7:22 AM [employer] [facility] Urea Nitrogen 25 7 - 30 mg/dL 10/18/2021 7:22 AM [employer] [facility] Creatinine 4.07(H) 0.66 - 1.25 mg/dL 10/18/2021 7:22 AM [employer] [facility] Calcium 9.2 8.5 - 10.1 mg/dL 10/18/2021 7:22 AM [employer] [facility] Glucose 106(H) 70 - 99 mg/dL 10/18/2021 7:22 AM [employer] [facility] Alkaline Phosphatase 79 40 - 150 U/L 10/18/2021 7:22 AM [employer] [facility] AST 10 0 - 45 U/L 10/18/2021 7:22 AM [employer] [facility] ALT 13 0 - 70 U/L 10/18/2021 7:22 AM [employer] [facility] Protein Total 7.6 6.8 - 8.8 g/dL 10/18/2021 7:22 AM [employer] [facility] Albumin 3.1(L) 3.4 - 5.0 g/dL 10/18/2021 7:22 AM [employer] [facility] Bilirubin Total 0.4 0.2 - 1.3 mg/dL 10/18/2021 7:22 AM MANAGER [employer] [facility] GFR Estimate 14(L) >60 mL/min/1.7 3m2 10/18/2021 7:22 AM MANAGER [employer] [facility] Comment:Effective August 312020 eGFRcr in adults is calculated using the 2020 CKD-EPI creatinine equation which includes age and gender (Mihai et al., NEJM, DOI: 10.1056/QUNCsw3613777) Blood STRUCTURE OF RIGHT UPPER LIMB / Unknown Venipuncture / Unknown 10/17/2021 11:09 AM [employer]GER [employer] 10/17/2021 11:10 AM [employer] us Janet Villarreal MD LAB - BLOOD ORDERABLES Fi nal Result [facility] [address] Lab (no room number, 1st floor of clinic) [place] [address], [facility] [phone] from Last 3 Months or Most Recently Relevant to Health Maintenance Insurance MEDICARE [facility] MEDICARE [facility] Care Teams Lumpia Wrapper Maker Relationship Specialty Start Date End Date Mary Goodwin MD [facility]-Department Of Family Medicine [address] [place] [address] [phone] PCP - General Family Practice 06/11/24 Hung Sigala MD [address] [place] [address] Assigned Heart and Vascular Provider 02/11/22 Peter Bedoya MD [address] [place] [address] [id number] Assigned Musculoskeletal Provider 06/22/24 [facility] [address] [place] [address] Assigned PCP 12/20/24
--- OUTSIDE RECORDS SUMMARY | 2025-05-17 13:58 | XMS_ITS | Encounter Summary ---
Author Organization [facility] Address [address] [place] [address] Care Team Providers Care Field Artillery Senior Sergeant Name Role Phone Mary Goodwin M.D. Primary Care Provider [phone] Encounter Details Date Type Department Care Team (Late st Contact Info) Description 04/06/2025 Clinical Communication Department of Family Medicine, [facility], in [address] [phone] Mary Goodwin M.D. [address] [place] [phone] Social History Tobacco Use Types Packs/Day Years Used Date Smoking Tobacco: Former Cigarettes 0 1953 - 09/30/2004 Passive Smoke Exposure: Never Smokeless Tobacco: Never Alcohol Use Standard Drinks/Week Comments Not Currently [...] things needed for daily living? No 04/20/2025 [facility] Utilities Answer Date Recorded In the past 12 months has th e electric, gas, oil, or water company threatened to shut off services in your home? No 04/20/2025 Depression Answer Date Recor ded PHQ-9 Total Score (max 27) 2 11/12 Housing Stability Answer Date Recorded What is your living situation today? I have a [facility] place to live 04/20/2025 Education Answer Date Recorded What is the highest level of school you have completed or the highest degree you have received? 12th grade 12/03/2022 Sex and Gender Information Value Date Recorded Sex Assigned at Male 12/03/2022 5:23 PM PAINT BRUSH MAKER Legal Sex Male 3:43 PM CDT Gender Identity Male 12/03/2022 5:23 PM PAINT BRUSH MAKER Sexual Orientation Straight 12/03/2022 5: 23 PM PAINT BRUSH MAKER documented as of this encounter Plan of Treatment Upcoming Encounters Date Type Department Care Team (Late st Contact Info) Description 05/25/2025 4:30 PM CDT Appointment Department of Laboratory Medicine in [address] [phone] Mary Goodwin M.D. [address] [place] [phone] 05/27/2025 9:00 AM CDT Office Visit Department of Family Medicine, [facility], in [address] [phone] Mary Goodwin M.D. [address] [place] [phone] Discharge Disposition: Home or Self Care 07/26/2025 3:15 PM CDT Office Visit Department of Orthopedic Surgery in [address] [phone] Elsa Villarreal D.P.M. [address] [place] [phone] Discharge Disposition: Home or Self Care documented as of this encounter Visit Diagnoses Not on filedocumented in this encounter Additional Health Concerns Assessment Noted Time PHQ-9 Depression Total Score: 2 11/12/19 24 4:33 PM PAINT BRUSH MAKER documented as of this encounter Care Teams Field Artillery Senior Sergeant Relationship Specialty Start Date End Date Mary Goodwin M.D. [address] [place] [phone] PCP - General 02/14/24 documented as of this encounter
--- OUTSIDE RECORDS SUMMARY | 2025-05-17 13:58 | XMS_ITS | Encounter Summary ---
Author Organization [facility] Address [address] [place] [address] Care Team Providers Care Police Lieutenant Precinct Name Role Phone Mary Goodwin M.D. Primary Care Provider [phone]- [phone] Reason for Visit * Reason Comments Med Refill Encounter Details Date Type Department Care Team (Late st Contact Info) Description 05/16/2025 Refill Department of Family Medicine, [facility], in [address] [phone] Mary Goodwin M.D. [address] [place] [phone] Med Refill Social History Tobacco Use Types Packs/Day [...] things needed for daily living? No 04/20/2025 [facility] Utilities Answer Date Recorded In the [...] Sex Assigned at Male 12/03/2022 5:23 PM SALES AUDIT CLERK Legal Sex Male 3:43 PM CDT Gender Identity Male 12/03/2022 5:23 PM SALES AUDIT CLERK Sexual Orientation Straight 12/03/2022 5: 23 PM SALES AUDIT CLERK documented as of this encounter Plan of Treatment Upcoming Encounters Date Type Department Care Team (Late st Contact Info) Description 05/25/2025 4:30 PM CDT Appointment Department of Laboratory Medicine in [address] [phone] Mary Goodwin M.D. [address] [place] [phone] 05/27/2025 9:00 AM CDT Office Visit Department of Family Medicine, [facility], in [address] [phone] Mary Goodwin M.D. [address] [place] [phone] Discharge Disposition: Home or Self Care 07/26/2025 3:15 PM CDT Office Visit Department of Orthopedic Surgery in [address] [phone] Elsa Villarreal D.PDavidMDavid [address] [place] [address] Discharge Disposition: Home or Self Care documented as of this encounter Visit Diagnoses Diagnosis Primary Osteoarthritis Knee Bilateral documented in this encounter Additional Health Concerns Assessment Noted Time PHQ-9 Depression Total Score: 2 11/12/19 24 4:33 PM SALES AUDIT CLERK documented as of this encounter Care Teams Police Lieutenant Precinct Relationship Specialty Start Date End Date Mary Goodwin M.D. [address] [place] [phone] PCP - General 02/14/24 documented as of this encounter
--- OUTSIDE RECORDS SUMMARY | 2025-05-17 13:58 | XMS_ITS | Encounter Summary ---
Author Organization [facility] Address [address] [place] [address] Care Team Providers Care Calender Operator Name Role Phone Unavailable Primary Care Provider Unavailabl e Encounter Details Date Type Department Care Team (Late st Contact Info) Description 05/05/2025 Orders Only [facility] [place] [address] [place] [address] Elver Juarez MD [address] [place] [address] Social History Tobacco Use Types Packs/Day Years Used Date Smoking Tobacco: Never Smokeless Tobacco: Never Sex and Gender Information Value Date Recorded Sex Assigned at Not on file Legal Sex Male 7:32 AM EDT Gender Identity Not on file Sexual Orientation Not on file documented as of this encounter Plan of Treatment Not on file documented as of this encounter Procedures Procedure Name Priority Date/Time Associated Diagnosis Comments HD KINETICS Routine 05/05/2025 POST CHEMISTRY Routine 05/05/2025 HEMATOLOGY Routine 05/05/2025 CHEMISTRY Routine 05/05/2025 CHEMISTRY Routine 05/05/2025 [facility] RESULTS Routine 05/05/2025 documented in this encounter Results * [facility] Results (05/05/2025) Pathologist [facility] WSTDKT/V 2.6 Knowledge Center spKt/V Gotch 1.73 [facility] ge Center eNPCR 1.20 [facility] eKt/V [facility] n[facility]_HD 1.28 [facility] eKdrt/V 1.50 [facility] eKt/V ([place]) 1.49 [facility] Center PCR 86.43 [facility] spKt/V (Daugirdas II) 1.71 [facility] 05/05/2025 05/05/2025 [facility] Ordering Provider LAB BLOOD ORDERABLES Final Result [facility] Center Contact Performing lab Unknown, [place] * HD KINETICS (05/05/2025) Pathologist [facility] % Urea Reduction 78 65 - 80 % [facility] 05/05/2025 05/07/2025 2:3 5 AM CDT Narrative [facility] - 05/07/2025 Unless otherwise specified, test(s) performed at: [facility], [address] [place] [address], [place] [address] MARRIAGE AND FAMILY SOCIAL WORKER: Shelton Vidales M.D., Ph.D For any questions, please call customer service at FREQUENCY:MONTHLY Resulting Agency Comment Specimen source: Plasma Elver Juarez MD LAB BLOOD ORDERABLES Final Re sult [facility] See order comments or contact performing lab Unknown, [place] * (ABNORMAL) [facility] (05/05/2025) BUN 72(H) 6 - 19 mg/dL [facility] [...] 05/05/2025 05/07/2025 4:0 6 AM CDT Narrative [facility] - 05/07/2025 Unless otherwise specified, test(s) performed at: [facility], [address] [place] [address], [place] [address] MARRIAGE AND FAMILY SOCIAL WORKER: Shelton Vidales M.D., Ph.D For any questions, please call customer service at FREQUENCY:MONTHLY Resulting Agency Comment Specimen source: Serum us Elver Juarez MD LAB BLOOD ORDERABLES Final Re sult [facility] See order comments or contact performing lab Unknown, [place] * (ABNORMAL) [facility] Chemistry (05/05/2025) PTH 349(H) 16 - 80 pg/mL [facility] 05/05/2025 05/07/2025 3:4 8 AM CDT Narrative [facility] - 05/07/2025 Unless otherwise specified, test(s) performed at: [facility], [address] [place] [address], [place] [address] MARRIAGE AND FAMILY SOCIAL WORKER: Shelton Vidales M.D., Ph.D For any questions, please call customer service at FREQUENCY:MONTHLY Resulting Agency Comment Specimen source: Plasma Elver Juarez MD LAB BLOOD ORDERABLES Final [facility] Performing Organization Address [facility] de Phone Number [facility] See order comments or contact performing lab Unknown, [place] * POST CHEMISTRY (05/05/2025) Pathologist [facility] BUN Post Dialysis 16 6 - 19 mg/dL [facility] 05/05/2025 05/07/2025 2:3 5 AM CDT Narrative [facility] - 05/07/2025 Unless otherwise specified, test(s) performed at: [facility], [address] [place] [address], [place] [address] MARRIAGE AND FAMILY SOCIAL WORKER: Shelton Vidales M.D., Ph.D For any questions, please call customer service at FREQUENCY:MONTHLY Resulting Agency Comment Specimen source: Plasma Elver Juarez MD LAB BLOOD ORDERABLES Final [facility] Performing Organization Address [facility] de Phone Number [facility] See order comments or contact performing lab Unknown, [place] * (ABNORMAL) HEMATOLOGY (05/05/2025) Pathologist [facility] Neutrophils 63.0 40.0 - 75.0 % [facility] [...] 05/06/2025 Unless otherwise specified, test(s) performed at: [facility], [address] [place] [address], [place] [address] MARRIAGE AND FAMILY SOCIAL WORKER: Shelton Vidales M.D., Ph.D For any questions, please call customer service at FREQUENCY:MONTHLY Resulting Agency Comment Specimen source: Blood us Elver Juarez MD LAB BLOOD ORDERABLES Final Re sult [facility] See order comments or contact performing lab Unknown, [place] documented in this encounter Visit Diagnoses Not on filedocumented in this encounter
--- OUTSIDE RECORDS SUMMARY | 2025-05-17 13:58 | XMS_ITS | Encounter Summary ---
Author Organization [facility] Address [address] [place] [address] Care Team Providers Care Research Assistant Name Role Phone Unavailable Primary Care Provider Unavailabl e Encounter Details Date Type Department Care Team (Late st Contact Info) Description 04/14/2025 Orders Only [facility] [place] [address] [place] [address] Elver Juarez MD [address] [place] [address] Social History Tobacco Use Types [...] Procedure Name Priority Date/Time Associated Diagnosis Comments HEMATOLOGY Routine 04/14/2025 documented in this encounter Results * (ABNORMAL) HEMATOLOGY (04/14/2025) Hemoglobin 11.4(L) 14.0 - 18.0 g/dL [facility] Hemoglobin x 3 34.2(L) 42.0 - 54.0 % [facility] 04/14/2025 04/15/2025 9:3 7 AM CDT Narrative [facility] - 04/15/2025 Unless otherwise specified, test(s) performed at: [facility], [address] [place] [address], [place] [address] PHOTOGRAPHER APPRENTICE: Shelton Vidales M.D., Ph.D For any questions, please call customer service at FREQUENCY:OTHER Resulting Agency Comment Specimen source: Blood us Elver Juarez MD LAB BLOOD ORDERABLES Final Re sult [facility] See order comments or contact performing lab Unknown, [place] documented in this encounter Visit Diagnoses Not on filedocumented in this encounter
--- OUTSIDE RECORDS SUMMARY | 2025-05-17 13:58 | XMS_ITS | Encounter Summary ---
Author Organization [facility] Address [address] [place] [address] Care Team Providers Care Seo Analyst Name Role Phone Unavailable Primary Care Provider Unavailabl e Encounter Details Date Type Department Care Team (Late st Contact Info) Description 04/21/2025 Orders Only [facility] [place] [address] [facility] [address] [place] [address] Elver Juarez MD [address] [place] [address] Social History Tobacco Use Types [...] Priority Date/Time Associated Diagnosis Comments HEMATOLOGY Routine 04/21/2025 documented in this encounter Results * (ABNORMAL) HEMATOLOGY (04/21/2025) Hemoglobin 11.3(L) 14.0 - 18.0 g/dL [facility] Hemoglobin x 3 33.9(L) 42.0 - 54.0 % [facility] 04/21/2025 04/22/2025 11: 21 AM CDT Narrative [facility] - 04/22/2025 Unless otherwise specified, test(s) performed at: [facility], [address] [place] [address], [place] [address] MIXING MACHINE FEEDER: Shelton Vidales M.D., Ph.D For any questions, please call customer service at FREQUENCY:OTHER Resulting Agency Comment Specimen source: Blood us Elver Juarez MD LAB BLOOD ORDERABLES Final Re sult [facility] See order comments or contact performing lab Unknown, [place] documented in this encounter Visit Diagnoses Not on filedocumented in this encounter
--- OUTSIDE RECORDS SUMMARY | 2025-05-17 13:58 | XMS_ITS | Encounter Summary ---
Author Organization [facility] Address [address] [place] [address] Care Team Providers Care Combat Rifle Crewmember Name Role Phone Mary Goodwin M.D. Primary Care Provider [phone]- [phone] Reason for Visit * Reason Comments Med Refill Encounter Details Date Type Department Care Team (Late st Contact Info) Description 05/17/2025 Refill Department of Family Medicine, [facility], in [address] [phone] Mary Goodwin M.D. [address] [place] [phone] Med Refill Social History Tobacco Use Types [...] for daily living? No 04/20/2025 [facility] Utilities Answer Date Recorded In the past 12 months has th e electric, gas, oil, or water company threatened to shut off services in your home? No 04/20/2025 Depression Answer Date Recor ded PHQ-9 Total Score (max 27) 2 11/12 Housing Stability Answer Date Recorded What is your living situation today? I have a [facility] place to live 04/20/2025 Education Answer Date Recorded What is the highest level of school you have completed or the highest degree you have received? 12th grade 12/03/2022 Sex and Gender Information Value Date Recorded Sex Assigned at Male 12/03/2022 5:23 PM SAVINGS COUNSELOR Legal Sex Male 3:43 PM CDT Gender Identity Male 12/03/2022 5:23 PM SAVINGS COUNSELOR Sexual Orientation Straight 12/03/2022 5: 23 PM SAVINGS COUNSELOR documented as of this encounter Plan of Treatment Upcoming Encounters Date Type Department Care Team (Late st Contact Info) Description 05/25/2025 4:30 PM CDT Appointment Department of Laboratory Medicine in [address] [phone] Mary Goodwin M.D. [address] [place] [phone] 05/27/2025 9:00 AM CDT Office Visit Department of Family Medicine, [facility], in [address] [phone] Mary Goodwin M.D. [address] [place] [phone] Discharge Disposition: Home or Self Care 07/26/2025 3:15 PM CDT Office Visit Department of Orthopedic Surgery in [address] [phone] Elsa Villarreal D.PDavidMDavid [address] [place] [address] Discharge Disposition: Home or Self Care documented as of this encounter Visit Diagnoses Diagnosis Primary Osteoarthritis Knee Bilateral documented in this encounter Additional Health Concerns Assessment Noted Time PHQ-9 Depression Total Score: 2 11/12/19 24 4:33 PM SAVINGS COUNSELOR documented as of this encounter Care Teams Combat Rifle Crewmember Relationship Specialty Start Date End Date Mary Goodwin M.D. [address] [place] [phone] PCP - General 02/14/24 documented as of this encounter
--- OUTSIDE RECORDS SUMMARY | 2025-05-17 13:58 | XMS_ITS | Encounter Summary ---
Author Organization [facility] Address [address] [place] [address] Care Team Providers Care Slasher Machine Operator Name Role Phone [facility] Primary Ca re Provider Janet Villarreal MD Unavailable Unavaila Hung Arreguin MD Unavailable + [phone] Janet Villarreal MD Primary Care Provider Un available Janet Villarreal MD Unavailable Unavaila ble No Ref-Primary, Physician Primary Care Provider Mary Goodwin MD Primary Care Provider [phone] Peter Bedoya MD Unavailable [facility] Unavailabl e Encounter Details Date Type Department Care Team (Late st Contact Info) Description 02/14/2022 My[facility] Medical Advice Initial Department [facility] Social History Tobacco Use Types Packs/Day Years [...] on file Legal Sex Male 6:11 PM ACQUISITIONS ANALYST Gender Identity Not on file Sexual Orientation Not on file COVID-19 Exposure Response Date Recorded In the last 10 days, have alejandro u been in contact with someone who was confirmed or suspected to have Coronavirus/COVID-19? No / Unsure 02/13/2022 9:56 AM CDT documented as of this encounter Plan of Treatment Not on file documented as of this encounter Visit Diagnoses Not on filedocumented in this encounter Care Teams Slasher Machine Operator Relationship Specialty Start Date End Date [facility] [address] [place] [address] PCP - General 10/17/21 08/22/22 [place] [address] [place] [address] [address] PCP - General Internal Medicine 08/23/22 01/23/23 No Ref-Primary, Physician PCP - General 03/05/24 06/10/24 Mary Goodwin MD [facility] Of [facility] Medicine [address] [place] [phone] PCP - General Family Practice 06/11/24 [place] [address] [place] [address] Assigned PCP 10/05/21 12/19/24 Hung Sigala MD [address] [place] [address] Assigned Heart and Vascular Provider 02/11/22 Janet Villarreal MD Assigned Pain Medication Provider 04/20/23 10/23/23 [place] [address] [place] [id number] Assigned Musculoskeletal Provider 06/22/24 [facility] [address] [address] [address] Assigned PCP 12/20/24 documented as of this encounter
--- OUTSIDE RECORDS SUMMARY | 2025-05-17 13:58 | XMS_ITS | Encounter Summary ---
Author Organization [facility] Address [address] [place] [address] Care Team Providers Care Hand Clerical Verifier Name Role Phone Mary Goodwin M.D. Primary Care Provider [phone]- [phone] Reason for Visit * Reason Onset Date Comments Med Refill 04/04/2025 Encounter Details Date Type Department Care Team (Late st Contact Info) Description 04/04/2025 Refill Department of Family Medicine, [facility], in [address] [phone] Mary Goodwin M.D. [address] [place] [phone] Med Refill Social History Tobacco Use Types Packs/Day Years Used Date Smoking Tobacco: Former Cigarettes 0 1953 - 09/30/2004 Passive Smoke Exposure: Never Smokeless Tobacco: Never Alcohol Use Standard Drinks/Week Comments Not Currently 0 (1 standard drink = 0.6 oz pur e alcohol) rare. [facility] Utilities Answer Date Recorded In the past 12 months has e electric, gas, oil, or water company threatened to shut off services in your home? No 11/26/2024 Humiliation, Afraid, Rape, and Kick questionnair e [...] the money to buy more. Never true 11/26/19 25 Within the past 12 months, t he food you bought just didn't last and you didn't have money to get more. Never true 11/26/2024 PRAPARE - Transportation Answer Date Re corded In the past 12 months, has l ack of transportation kept you from medical appointments or from getting medications? No 11/01 In the past 12 months, has l ack of transportation kept you from meetings, work, or from getting things needed for daily living? No 11/26/2024 Depression Answer Date Recor ded PHQ-9 Total Score (max 27) 2 11/12 Housing Stability Answer Date Recorded What is your living situation today? I have a [facility] place to live 11/26/2024 Education Answer Date Recorded What is the highest level of school you have completed or the highest degree you have received? 12th grade 12/03/2022 Sex and Gender Information Value Date Recorded Sex Assigned at Male 12/03/2022 5:23 PM CHANGE MANAGEMENT ADMINISTRATOR Legal Sex Male 3:43 PM CDT Gender Identity Male 12/03/2022 5:23 PM CHANGE MANAGEMENT ADMINISTRATOR Sexual Orientation Straight 12/03/2022 5: 23 PM CHANGE MANAGEMENT ADMINISTRATOR documented as of this encounter Plan of Treatment Upcoming Encounters Date Type Department Care Team (Late st Contact Info) Description 05/25/2025 4:30 PM CDT Appointment Department of Laboratory Medicine in [address] [phone] Mary Goodwin M.D. [address] [place] [phone] 05/27/2025 9:00 AM CDT Office Visit Department of Family Medicine, [facility], in [address] [phone] Mary Goodwin M.D. [address] [place] [phone] Discharge Disposition: Home or Self Care 07/26/2025 3:15 PM CDT Office Visit Department of Orthopedic Surgery in [address] [phone] Elsa Villarreal D.PDavidMDavid [address] [place] [phone] Discharge Disposition: Home or Self Care documented as of this encounter Visit Diagnoses Diagnosis Primary Osteoarthritis Knee Bilateral documented in this encounter Additional Health Concerns Assessment Noted Time PHQ-9 Depression Total Score: 2 11/12/19 24 4:33 PM CHANGE MANAGEMENT ADMINISTRATOR documented as of this encounter Care Teams Hand Clerical Verifier Relationship Specialty Start Date End Date Mary Goodwin M.D. [address] [place] [phone] PCP - General 02/14/24 documented as of this encounter
--- OUTSIDE RECORDS SUMMARY | 2025-05-17 13:58 | XMS_ITS | Encounter Summary ---
Author Organization [facility] [place] [place] Address [address] [place] [address] Care Team Providers Care Spray Dry Operator Name Role Phone Unavailable Primary Care Provider Unavailabl e Encounter Details Date Type Department Care Team (Late st Contact Info) Description 04/28/2025 Treatment [facility] [place] [address] [place] [address] Elver Barragan MD [address] [place] [address] End stage renal disease; Dependence on renal dialysis Social History Tobacco Use Types Packs/Day Years Used Date Smoking Tobacco: Never Smokeless Tobacco: Never Sex and Gender Information Value Date Recorded Sex Assigned at Not on file Legal Sex Male 7:32 AM EDT Gender Identity Not on file Sexual Orientation Not on file documented as of this encounter Miscellaneous Notes * Dialysis Note - Elver Barragan MD - 04/28/2025 12:00 AM CDT Patient: Geremias Estrella : 1940 [facility]: [facility] Note Type: Dialysis Rounds-Comp Service Date: 04/28/2025 This patient was personally seen [id number] for a complete visit as part of routine monthly dialysis care for end stage renal disease. Attending Financial Representative: ELVER BARRAGAN Dialysis Location: [facility] Schedule: Shift: 1 OVERVIEW COMMENTS: 04/28/25 MD: Had a little nausea not related to dialysis, vomited one day, taking anti-emetic and this helps. Now mild nausea without vomiting. Otherwise feels well. BP stable. Dry weight stable. Labs overall excellent. MAC SUBJECTIVE: CORPORATE PLANNING MANAGER 04/21/25: Juan reports he has been well. No shortness of breathe, dizziness, chest pain, or cramping. Tolerating HD. Reviewed labs. Reaching edw. Access is working well. HOME MEDICATIONS Medications reviewed. Current [facility] Outpatient Medications amitriptyline 50 mg tablet Take 1 tablet by mouth at bedtime as directed. atorvastatin 20 mg tablet Take 1 tablet by mouth every night as directed. Preethi Low Dose Aspirin 81 mg tablet,delayed release (DR/EC) Take 1 tablet by mouth once a day as directed. finasteride 5 mg tablet Take 1 tablet by mouth every night as directed. free text [Medications reviewed per list provided by pt.'s daughter.] gabapentin 300 mg capsule Take 1 capsule by mouth at bedtime. glucosamine-chondroitin 900 mg tablet Take 1/2 tablet by mouth twice a day as directed. hydroxyzine pamoate 25 mg capsule Take 1 capsule by mouth twice a day as needed. linaclotide 72 mcg capsule Take 1 capsule by mouth once a day as directed. [ Linzess ] maculabs vitamin 2 tablet by mouth once a day. midodrine 10 mg tablet Take 2 tablet by mouth three times a week. [Take 10mg before and 10mg during dialysis] Nephro-Mane 0.8 mg tablet Take 1 tablet by mouth once a day. Plavix 75 mg tablet Take 1 tablet by mouth once a day as directed. probiotic 3 billion 1 tablet by mouth once a day. sevelamer carbonate 800 mg tablet Take 2 tablet by mouth three times a day with meals. Synthroid 175 mcg tablet Take 1 tablet by mouth every morning one hour before meals. tamsulosin 0.4 mg capsule Take 1 capsule by mouth every night as directed. tramadol 50 mg tablet Take 1 tablet by mouth twice a day as needed for pain. Current [facility] Allergies Allergen: ARB-Angiotensin Receptor Antagonist Reaction: Unknown Allergen: lisinopril Reaction: Unknown Allergen: metformin Reaction: Unknown Allergen: NSAIDS (Non-Steroidal Anti-Inflammatory Drug) Reaction: Unknown DIALYSIS PRESCRIPTION Treatment Data Treatment Date: 04/28/2025 started at: 7:14 AM Dialysate / Machine Temp (prescribed): 35.5*C Dialysate / Machine Temp (actual): 37.0*C BFR (prescribed): 450 BFR (average delivered): 450 DFR (prescribed): Manual 800 DFR (average delivered): 800 Prescribed Time: 04:00 Actual Time: 03:56 EDW (kg): 98.3 Dialyzer: 180NRe Optiflux Dialysate: 2.0 K, 2.5 Ca, 1.0 Mg, 100 Dextrose (G2251) Sodium: 137 Bicarb: 26 Pre Dialysis Vitals Pre BP Sit: 108/53 Pre Wt (kg): 98.6 EDW Deviation (kg): 0.3 Temp: 97.6*F Post Dialysis Vitals Post BP Sit: 106/56 Post Wt (kg): 97.7 TREATMENT MEDICATIONS ORDERS Heparin Sodium (Porcine) 1,000 Units/mL Systemic 1000 units IVP Every Treatment 07/15/2024 - 07/14/2025 Heparin Sodium (Porcine) 1,000 Units/mL Systemic 4000 units IVP Every Treatment 07/15/2024 - 07/14/2025 Vitamin D (Calcitriol) Oral 0.75 mcg ORAL 3X Week 11/09/2024 - 11/08/2025 BP AND FLUID ASSESSMENT Acceptable blood pressure. Fluid status acceptable. EDW appropriate. COMMENTS: BP runs low on dialysis. Uses midodrine for support Post BP Sit 106/56 - 04/28/2025 94/46 - 04/26/2025 123/47 - 04/23/2025 Post Wt (kg) 97.7 - 04/28/2025 97.3 - 04/26/2025 97.2 - 04/23/2025 EDW (kg) 98.3 - 04/28/2025 98.3 - 04/26/2025 98.3 - 04/23/2025 Deviation (kg) -0.6 - 04/28/2025 -1.0 - 04/26/2025 -1.1 - 04/23/2025 ADEQUACY ASSESSMENT spKt/V (Daugirdas II) 1.53 (03/31/25) 1.55 (03/03/25) 1.72 (02/03/25) eKdrt/V 1.35 (03/31/25) 1.36 (03/03/25) 1.52 (02/03/25) % Urea Reduction 74 (03/31/25) 75 (03/03/25) 78 (02/03/25) BUN 81 (03/31/25) 110 (03/03/25) 114 (02/03/25) BUN Post Dialysis 21 (03/31/25) 27 (03/03/25) 25 (02/03/25) Creatinine 7.56 (03/31/25) 7.15 (03/03/25) 6.84 (02/03/25) Bicarbonate (CO2) 28 (03/31/25) 23 (03/03/25) 26 (02/03/25) Sodium 140 (03/31/25) 139 (03/03/25) 137 (02/03/25) Target met. Prescription compliance acceptable. Missed Treatments 0 - Last 30 days 0 - Last 60 days ACCESS ASSESSMENT Vascular access examined. AVF/AVG positive thrill/bruit. Current access is permanent and functioning well. AVFistula Standard Left Forearm Active (In Use) - 10/16/2021 Placed - Unknown Access Flow 580 (04/05/25) 1507 (03/05/25) 581 (01/08/25) ANEMIA ASSESSMENT Hemoglobin 11.3 (04/21/25) 11.4 (04/14/25) 12.3 (04/07/25) Iron Saturation (TSat) 18 (03/31/25) 30 (03/03/25) 23 (02/03/25) Ferritin 818 (02/03/25) 710 (11/04/24) 1,282 (09/21/24) Iron 38 (03/31/25) 57 (03/03/25) 49 (02/03/25) TIBC 207 (03/31/25) 191 (03/03/25) 210 (02/03/25) MCV 97 (03/31/25) 98 (03/03/25) 97 (02/03/25) Vitamin B-12 540 (10/14/24) Platelets 210 (03/31/25) 189 (03/03/25) 255 (02/03/25) Anemia targets met. COMMENTS: No GURWINDER with Hgb ?11 BMM ASSESSMENT Calcium 9.2 03/31/25 9.1 03/03/25 9.3 02/03/25 Corrected Calcium 9.6 03/31/25 9.4 03/03/25 9.6 02/03/25 Phosphorus 6.1 03/31/25 5.3 03/03/25 4.8 02/03/25 Calcium Phosphorus Product 56 03/31/25 48 03/03/25 45 02/03/25 PTH 326 03/31/25 327 03/03/25 279 02/03/25 Magnesium 2.2 02/03/25 2.2 11/04/24 2.3 09/21/24 Alkaline Phosphatase 72 02/03/25 68 11/04/24 74 08/05/24 Aluminum ?5 08/05/24 PTH within target. Hyperphosphatemia noted. Calcium controlled. Bone and mineral metabolism parameters reviewed. COMMENTS: Continue phos binders NUTRITION ASSESSMENT Albumin 3.5 03/31/25 3.6 03/03/25 3.6 02/03/25 Potassium 5.2 03/31/25 4.3 03/03/25 4.6 02/03/25 eNPCR 1.26 03/31/25 1.63 03/03/25 1.81 02/03/25 Albumin not at goal. Potassium controlled. Patient taking protein supplements. TRANSPLANT STATUS COMMENT COMMENTS: Not a candidate for kidney transplant due to age and co-morbidities PHYSICAL EXAM Exam performed. Vital Signs Reviewed. Lungs - Clear. CV - Blood pressure noted. CV - RRR. EXT - No ulcers. COMMENTS: stable edema ADDITIONAL LABS WBC 6.55 (03/31/25) 6.39 (03/03/25) 6.39 (02/03/25) Hepatitis B Surface Ab 36 (08/05/24) Signed by: ELVER BARRAGAN MD on 04/28/2025 at 04:24:09 PM Transcribed by: ELVER BARRAGAN MD on 04/28/2025 at 04:24:09 PM documented in this encounter Plan of Treatment Not on file documented as of this encounter Visit Diagnoses Diagnosis End stage renal disease Dependence on renal dialysis documented in this encounter
--- OUTSIDE RECORDS SUMMARY | 2025-05-17 13:58 | XMS_ITS | Encounter Summary ---
Author Organization [facility] Address [address] [place] [address] Care Team Providers Care Quality Control Lab Tech Name Role Phone Unavailable Primary Care Provider Unavailabl e Encounter Details Date Type Department Care Team (Late st Contact Info) Description 05/05/2025 Treatment [facility] [place] [address] [place] [address] Elver Barragan MD [address] [place] [address] End stage renal disease; Dependence [...] Dialysis Note - Elver Barragan MD - 05/05/2025 12:00 AM CDT Patient: Geremias Estrella : 1940 [facility]: [facility] Note Type: Dialysis Rounds-Comp Service Date: 05/05/2025 This patient was personally seen [id number] for a complete visit as part of routine monthly dialysis care for end stage renal disease. Attending Ammonia Still Operator: ELVER BARRAGAN Dialysis Location: [facility] DIAL[facility] Schedule: Shift: 1 OVERVIEW COMMENTS: 05/05/25 MD: No new symptoms or concerns. Access working well. Fluid gains excellent, reaching EDW. 04/28/25 MD: Had a little nausea not related to dialysis, vomited one day, taking anti-emetic and this helps. Now mild nausea without vomiting. Otherwise feels well. BP stable. Dry weight stable. Labs overall excellent. MAC SUBJECTIVE: ACCOUNT EXECUTIVE AGRIBUSINESS 04/21/25: Juan reports he has been well. No shortness of breathe, dizziness, chest pain, or cramping. Tolerating HD. Reviewed labs. Reaching edw. Access is working well. HOME MEDICATIONS Medications reviewed. Current [facility] Outpatient Medications amitriptyline 50 mg tablet Take [...] a day as needed for pain. Current [facility] Allergies Allergen: ARB-Angiotensin Receptor Antagonist Reaction: Unknown Allergen: lisinopril Reaction: Unknown Allergen: metformin Reaction: Unknown Allergen: NSAIDS (Non-Steroidal Anti-Inflammatory Drug) Reaction: Unknown DIALYSIS PRESCRIPTION Treatment Data Treatment Date: 05/05/2025 started at: 7:13 AM Dialysate / Machine Temp (prescribed): 35.5*C Dialysate / Machine Temp (actual): 37.0*C BFR (prescribed): 450 BFR (actual): 450 DFR (prescribed): Manual 800 DFR (actual): 800 Prescribed Time: 04:00 EDW (kg): 97.4 Dialyzer: 180NRe Optiflux Dialysate: 2.0 K, 2.5 Ca, 1.0 Mg, 100 Dextrose (G2251) Sodium: 137 Bicarb: 26 Pre Dialysis Vitals Pre BP Sit: 115/63 Pre Wt (kg): 97.7 EDW Deviation (kg): 0.3 Temp: 97.9*F Current Dialysis Vitals BP Sit: 117/62 AP/DINKEY MOTOR OPERATOR: 201/167 Pulse: 73 TREATMENT MEDICATIONS ORDERS Heparin Sodium (Porcine) 1,000 [...] Uses midodrine for support Post BP Sit 116/57 - 05/03/2025 111/56 - 04/30/2025 106/56 - 04/28/2025 Post Wt (kg) 97.4 - 05/03/2025 97.4 - 04/30/2025 97.7 - 04/28/2025 EDW (kg) 97.4 - 05/03/2025 97.7 - 04/30/2025 98.3 - 04/28/2025 Deviation (kg) 0.0 - 05/03/2025 -0.3 - 04/30/2025 -0.6 - 04/28/2025 ADEQUACY ASSESSMENT spKt/V (Daugirdas II) 1.53 (03/31/25) [...] - 10/16/2021 Placed - Unknown Access Flow 1076 (05/03/25) 580 (04/05/25) 1507 (03/05/25) ANEMIA ASSESSMENT Hemoglobin 11.7 (04/28/25) 11.3 (04/21/25) 11.4 (04/14/25) Iron Saturation (TSat) 18 (03/31/25) 30 (03/03/25) 23 (02/03/25) Ferritin 818 (02/03/25) 710 (11/04/24) 1,282 (09/21/24) Iron 38 (03/31/25) 57 (03/03/25) 49 (02/03/25) TIBC 207 (03/31/25) 191 (03/03/25) 210 (02/03/25) MCV 97 (03/31/25) 98 (03/03/25) 97 (02/03/25) Vitamin B-12 540 (10/14/24) Platelets 210 (03/31/25) 189 (03/03/25) 255 (02/03/25) Anemia targets met. COMMENTS: No GURWINDER with Hgb ?11. Hgb above goal but has not been on GURWINDER BMM ASSESSMENT Calcium 9.2 03/31/25 9.1 03/03/25 [...] mineral metabolism parameters reviewed. COMMENTS: Continue phos binders, near goal and generally phos controlled NUTRITION ASSESSMENT Albumin 3.5 03/31/25 3.6 03/03/25 [...] - Blood pressure noted. CV - RRR. 1+ edema. COMMENTS: stable edema ADDITIONAL LABS WBC 6.55 (03/31/25) 6.39 (03/03/25) 6.39 (02/03/25) Hepatitis B Surface Ab 36 (08/05/24) Signed by: ELVER BARRAGAN MD on 05/05/2025 at 09:58:40 AM Transcribed by: ELVER BARRAGAN MD on 05/05/2025 at 09:58:40 AM documented in this encounter Plan of Treatment Not on file documented as of this encounter Visit Diagnoses Diagnosis End stage renal disease Dependence on renal dialysis documented in this encounter
--- OUTSIDE RECORDS SUMMARY | 2025-05-17 13:58 | XMS_ITS | Encounter Summary ---
Author Organization [facility] [place] [place] Address [address] [place] [address] Care Team Providers Care Alumni Relations Manager Name Role Phone Unavailable Primary Care Provider Unavailabl e Encounter Details Date Type Department Care Team (Late st Contact Info) Description 04/21/2025 Treatment [facility] [place] [address] [place] [address] Jess Serna APRN-CNP [address] [place] [address] End stage renal disease; Dependence on renal dialysis Social History Tobacco Use Types Packs/Day Years Used Date Smoking Tobacco: Never Smokeless Tobacco: Never Sex and Gender Information Value Date Recorded Sex Assigned at Not on file Legal Sex Male 7:32 AM EDT Gender Identity Not on file Sexual Orientation Not on file documented as of this encounter Miscellaneous Notes * Dialysis Note - Jess Serna APRN-CNP - 04/21/2025 12:00 AM CDT Patient: Geremias Estrella : 1940 [facility] Note Type: Dialysis Rounds-Comp Service Date: 04/21/2025 This patient was personally seen for a complete visit as part of routine monthly dialysis care for end stage renal disease. Attending Tap Out Operator: ABIGAIL BARRAGAN Dialysis Location: [facility] DIALYS[facility] Schedule: -- Shift: 1 OVERVIEW COMMENTS: 03/22/25 MD: He is doing well. No falls at home. Twice a week he has a little weakness in his legs when he first gets up in the morning for about 5 minutes, then it passes and he is ok. He is aware to take it slow in the morning to avoid falls. He does not feel dizzy or light-headed with this. He has no new symptoms. Edema stable. Appetite is good. Reaching EDW. 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 No shortness of breathe, dizziness, chest pain, or cramping. Tolerating HD. Reviewed labs. Reaching edw. Access is working well. HOME MEDICATIONS Medications reviewed. Current [facility] Outpatient Medications amitriptyline 50 mg tablet Take [...] Unknown DIALYSIS PRESCRIPTION Treatment Data Treatment Date: 04/21/2025 started at: 7:14 AM Dialysate / Machine Temp (prescribed): 35.5*C Dialysate / Machine Temp (actual): 35.5*C BFR (prescribed): 450 BFR (actual): 375 DFR (prescribed): Manual 800 DFR (actual): 800 Prescribed Time: 04:00 EDW (kg): 98.9 Dialyzer: 180NRe Optiflux Dialysate: 2.0 K, 2.5 Ca, 1.0 Mg, 100 Dextrose (G2251) Sodium: 137 Bicarb: 26 Pre Dialysis Vitals Pre BP Sit: 111/54 Pre Wt (kg): 98.9 EDW Deviation (kg): 0.0 Temp: 97.9*F Current Dialysis Vitals BP Sit: 105/56 AP/MACHINE GROUP LEADER: 235/151 Pulse: 70 TREATMENT MEDICATIONS ORDERS Heparin Sodium (Porcine) 1,000 Units/mL Systemic 1000 units IVP Every Treatment 07/15/2024 - 07/14/2025 Heparin Sodium (Porcine) 1,000 Units/mL Systemic 4000 units IVP Every Treatment 07/15/2024 - 07/14/2025 Vitamin D (Calcitriol) Oral 0.75 mcg ORAL 3X Week 11/09/2024 - 11/08/2025 BP AND FLUID ASSESSMENT Fluid status acceptable. EDW appropriate. COMMENTS: BP runs low on dialysis. Uses midodrine for support Post BP Sit 123/62 - 04/19/2025 107/58 - 04/16/2025 90/47 - 04/14/2025 Post Wt (kg) 98.8 - 04/19/2025 98.9 - 04/16/2025 98.9 - 04/14/2025 EDW (kg) 98.9 - 04/19/2025 98.9 - 04/16/2025 99.6 - 04/14/2025 Deviation (kg) -0.1 - 04/19/2025 0.0 - 04/16/2025 -0.7 - 04/14/2025 ADEQUACY ASSESSMENT spKt/V (Daugirdas II) 1.53 (03/31/25) [...] 60 days ACCESS ASSESSMENT Vascular access examined. AVFistula Standard Left Forearm Active (In Use) - 10/16/2021 Placed - Unknown Access Flow 580 (04/05/25) 1507 (03/05/25) 581 (01/08/25) ANEMIA ASSESSMENT Hemoglobin 11.4 (04/14/25) 12.3 (04/07/25) 12.2 (03/31/25) Iron Saturation (TSat) 18 (03/31/25) 30 (03/03/25) 23 (02/03/25) Ferritin 818 (02/03/25) 710 (11/04/24) 1,282 (09/21/24) Iron 38 (03/31/25) 57 (03/03/25) 49 (02/03/25) TIBC 207 (03/31/25) 191 (03/03/25) 210 (02/03/25) MCV 97 (03/31/25) 98 (03/03/25) 97 (02/03/25) Vitamin B-12 540 (10/14/24) Platelets 210 (03/31/25) 189 (03/03/25) 255 (02/03/25) Hemoglobin at target. BMM ASSESSMENT Calcium 9.2 03/31/25 9.1 03/03/25 9.3 02/03/25 Corrected Calcium 9.6 03/31/25 9.4 03/03/25 9.6 02/03/25 Phosphorus 6.1 03/31/25 5.3 03/03/25 4.8 02/03/25 Calcium Phosphorus Product 56 03/31/25 48 03/03/25 45 02/03/25 PTH 326 03/31/25 327 03/03/25 279 02/03/25 Magnesium 2.2 02/03/25 2.2 11/04/24 2.3 09/21/24 Alkaline Phosphatase 72 02/03/25 68 11/04/24 74 08/05/24 Aluminum <5 08/05/24 PTH within target. Hyperphosphatemia noted. Counseled regarding dietary compliance. Referred to food production machine operator for further counseling. Calcium controlled. Bone and mineral metabolism parameters reviewed. COMMENTS: Continue phos binders NUTRITION ASSESSMENT Albumin 3.5 03/31/25 3.6 03/03/25 3.6 02/03/25 Potassium 5.2 03/31/25 4.3 03/03/25 4.6 02/03/25 eNPCR 1.26 03/31/25 1.63 03/03/25 1.81 02/03/25 Albumin not at goal. Potassium controlled. TRANSPLANT STATUS COMMENT COMMENTS: Not a candidate for kidney transplant due to age and co-morbidities PHYSICAL EXAM Exam performed. Vital Signs Reviewed. Lungs - Clear. CV - Blood pressure noted. CV - RRR. COMMENTS: stable edema VISIT DIAGNOSES Z99.2 Dependence on renal dialysis N18.6 End stage renal disease ADDITIONAL LABS WBC 6.55 (03/31/25) 6.39 (03/03/25) 6.39 (02/03/25) Hepatitis B Surface Ab 36 (08/05/24) Signed by: JESS SERNA APRN-CNP on 04/21/2025 at 10:13:03 AM Transcribed by: JESS SERNA APRN-CNP on 04/21/2025 at 10:10:46 AM documented in this encounter Plan of Treatment Not on file documented as of this encounter Visit Diagnoses Diagnosis End stage renal disease Dependence on renal dialysis documented in this encounter
--- OUTSIDE RECORDS SUMMARY | 2025-05-17 13:58 | XMS_ITS | Encounter Summary ---
Author Organization [facility] [place] Address [address] [place] [address] Care Team Providers Care Entry Level Software Developer Name Role Phone Unavailable Primary Care Provider Unavailabl e Encounter Details Date Type Department Care Team (Late st Contact Info) Description 04/07/2025 Orders Only [facility] [place] [address] [facility] [address] [place] [address] Elver Juarez MD [address] [place] [address] Social History Tobacco Use Types [...] Priority Date/Time Associated Diagnosis Comments HEMATOLOGY Routine 04/07/2025 documented in this encounter Results * (ABNORMAL) HEMATOLOGY (04/07/2025) Hemoglobin 12.3(L) 14.0 - 18.0 g/dL [facility] Hemoglobin x 3 36.9(L) 42.0 - 54.0 % [facility] 04/07/2025 04/08/2025 3:4 2 AM CDT Narrative [facility] - 04/08/2025 Unless otherwise specified, test(s) performed at: [facility], [address] [place] [address], [place] [address] CIRCLE CUTTING SAW OPERATOR: Shelton Vidales M.D., Ph.D For any questions, please call customer service at FREQUENCY:OTHER Resulting Agency Comment Specimen source: Blood us Elver Juarez MD LAB BLOOD ORDERABLES Final Re sult [facility] See order comments or contact performing lab Unknown, [place] documented in this encounter Visit Diagnoses Not on filedocumented in this encounter
--- OUTSIDE RECORDS SUMMARY | 2025-05-17 13:58 | XMS_ITS | Encounter Summary ---
Author Organization [facility] [place] Address [address] [place] [address] Care Team Providers Care Transportation Equipment Painter Name Role Phone Unavailable Primary Care Provider Unavailabl e Encounter Details Date Type Department Care Team (Late st Contact Info) Description 04/28/2025 Orders Only [facility] [place] [address] [facility] [address] [place] [address] Elver Juarez MD [address] [place] [address] Social History Tobacco Use Types [...] Priority Date/Time Associated Diagnosis Comments HEMATOLOGY Routine 04/28/2025 documented in this encounter Results * (ABNORMAL) HEMATOLOGY (04/28/2025) Hemoglobin 11.7(L) 14.0 - 18.0 g/dL [facility] Hemoglobin x 3 35.1(L) 42.0 - 54.0 % [facility] 04/28/2025 04/29/2025 6:3 3 AM CDT Narrative [facility] - 04/29/2025 Unless otherwise specified, test(s) performed at: [facility], [address] [place] [address], [place] [address] AIR TURNING MACHINE FEEDER: Shelton Vidales M.D., Ph.D For any questions, please call customer service at FREQUENCY:OTHER Resulting Agency Comment Specimen source: Blood us Elver Juarez MD LAB BLOOD ORDERABLES Final Re sult [facility] See order comments or contact performing lab Unknown, [place] documented in this encounter Visit Diagnoses Not on filedocumented in this encounter
--- OUTSIDE RECORDS SUMMARY | 2025-05-17 13:58 | XMS_ITS | Encounter Summary ---
Author Organization Telephone Address [address] [place] [address] Care Team Providers Care Autoclave Operator Name Role Phone [facility] Primary Ca re Provider Janet Villarreal MD Unavailable Unavaila Hung Arreguin MD Unavailable + [phone] Janet Villarreal MD Primary Care Provider Un available Janet Villarreal MD Unavailable Unavaila ble No Ref-Primary, Physician Primary Care Provider Mary Goodwin MD Primary Care Provider [phone] Peter Bedoya MD Unavailable [facility] Unavailabl e Reason for Visit * Reason Onset Date Comments Clinic Care Coordination - Post Hospital 022 Hospital follow up visit Encounter Details Date Type Department Care Team (Latest Contact Info) Description 01/15/[address] [facility] [address] [place] [address] Janet Villarreal MD Clinic Care Coordination - Post [facility] (... Social History Tobacco Use Types Packs/Day Years Used Date Smoking Tobacco: Former Cigarettes Q uit: 09/30/2004 Smokeless Tobacco: Never Alcohol Use Standard Drinks/Week Comments Never 0 (1 standard drink = 0.6 oz pur e alcohol) PHQ-2 Answer Date Recorded PHQ-2 Score 0 10/17/2021 Sex and Gender Information Value Date Recorded Sex Assigned at Not on file Legal Sex Male 6:11 PM LUGGAGE LINER Gender Identity Not on file Sexual Orientation Not on file documented as of this encounter Miscellaneous Notes * Telephone Encounter - Pilar Zambrano RN - 01/15/2022 4:21 PM CDT Spoke with patient and patients son. Patient given verbal approval to talk with son. Appointment scheduled with Dr. Villarreal 01/23/2022. Pilar Zambrano RN * Telephone Encounter - Vanessa Li RN - 01/15/2022 2:29 PM CDT Huddled with Dr. Villarreal who advised that patient be scheduled for follow up with her within the next week. (OK to use same day, provider approval, or acute slot). Called patient per listed number and spoke to son Ismael, no consent to communicate on file. Ismael states that patient is at dialysis currently but will be done in the next hour. Informed pt's son that cannot share information unless we receive verbal or written consent from patient. Instructed pt'sson to call back once patient is available to give verbal consent to communicate. Pt's son given clinic phone number and will call back. Vanessa Gonzalez RN documented in this encounter Plan of Treatment Not on file documented as of this encounter Visit Diagnoses Not on filedocumented in this encounter Care Teams Autoclave Operator Relationship Specialty Start Date End Date Clinic - [facility] [address] [address] PCP - General 10/17/21 08/22/22 [place] [address] [address] [address] PCP - General Internal Medicine 08/23/22 01/23/23 No Ref-Primary, Physician PCP - General 03/05/24 06/10/24 Mary Goodwin MD [facility] [address] [place] [phone] PCP - General Family Practice 06/11/24 [place] [address] [address] [address] Assigned PCP 10/05/21 12/19/24 Hung Sigala MD [address] [address] Assigned Heart and Vascular Provider 02/11/22 Janet Villarreal MD Assigned Pain Medication Provider 04/20/23 10/23/23 Peter Bedoya MD [address] [place] [address] [id number] Assigned Musculoskeletal Provider 06/22/24 [facility] [address] [address] [address] Assigned PCP 12/20/24 documented as of this encounter
--- OUTSIDE RECORDS SUMMARY | 2025-05-17 13:58 | XMS_ITS | Encounter Summary ---
Author Organization [facility] Address [address] [place] [address] Care Team Providers Care Outsole Cementer Name Role Phone Mary Goodwin M.D. Primary Care Provider [phone]- [phone] Reason for Visit * Reason Comments Med Refill Encounter Details Date Type Department Care Team (Late st Contact Info) Description 04/01/2025 Refill Department of Family Medicine, [facility], in [address] [phone] Mary Goodwin M.D. [address] [place] [phone] Med Refill Social History Tobacco Use Types Packs/Day Years Used Date Smoking Tobacco: Former Cigarettes 0 1953 - 09/30/2004 Passive Smoke Exposure: Never Smokeless Tobacco: Never Alcohol Use Standard Drinks/Week Comments Not Currently 0 (1 standard drink = 0.6 oz pur e alcohol) rare. [facility] Utilities Answer Date Recorded In [...] money to buy more. Never true 11/26/19 Within the past 12 months, t he [...] your living situation today? I have a [facility] place to live 11/26/2024 Education Answer Date Recorded What is the highest level of school you have completed or the highest degree you have received? 12th grade 12/03/2022 Sex and Gender Information Value Date Recorded Sex Assigned at Male 12/03/2022 5:23 PM LOCKER ROOM MANAGER Legal Sex Male 3:43 PM CDT Gender Identity Male 12/03/2022 5:23 PM LOCKER ROOM MANAGER Sexual Orientation Straight 12/03/2022 5: 23 PM LOCKER ROOM MANAGER documented as of this encounter Miscellaneous Notes * Telephone Encounter - Kylie Purvis L.P.N. - 04/06/2025 10:04 AM CDT Controlled substance renewal for Tramadol 50 mg: No nursing alert. Renewal is pended per the controlled substance prescribing plan located in controlled substance synopsis Date last prescribed (First fill date if included in last Rx): 12/09/24 #90 tablets Last provider visit: 12/08/24 with PCP for procedure and routine office visit 11/26/24 Urine Drug Screen last resulted on: No date found; Next due: on Dialysis Screenings due: PHQ-9, PEG, and EMELY-7, will defer to upcoming appointment Next provider visit due: Appointment is scheduled 05/27/25 with PCP Controlled substance agreement last reviewed/signed 11/12/2023 This prescription may be filled on 04/06/25, and next renewal may be on or after 05/06/25 documented in this encounter Plan of Treatment Upcoming Encounters Date Type Department Care Team (Late st Contact Info) Description 05/25/2025 4:30 PM CDT Appointment Department of Laboratory Medicine in [address] [phone] Mary Goodwin M.D. [address] [place] [phone] 05/27/2025 9:00 AM CDT Office Visit Department of Family Medicine, [facility], in [address] [phone] Mary Goodwin M.D. [address] [place] [phone] Discharge Disposition: Home or Self Care 07/26/2025 3:15 PM CDT Office Visit Department of Orthopedic Surgery in [address] [phone] Elsa Villarreal D.PDavidMDavid [address] [place] [phone] Discharge Disposition: Home or Self Care documented as of this encounter Visit Diagnoses Diagnosis Primary Osteoarthritis Knee Bilateral documented in this encounter Additional Health Concerns Assessment Noted Time PHQ-9 Depression Total Score: 2 11/12/19 24 4:33 PM LOCKER ROOM MANAGER documented as of this encounter Care Teams Outsole Cementer Relationship Specialty Start Date End Date Mary Goodwin M.D. [address] [place] [phone] PCP - General 02/14/24 documented as of this encounter
[2025-05-17 13:59] LABS: PCO2 VBG 47 mmHG (40-50); PO2 VBG < 30.1 mmHG (25-47); pH VBG 7.345 (7.32-7.43)
--- OUTSIDE RECORDS SUMMARY | 2025-05-17 13:59 | XMS_ITS | Clinical Summary ---
Author Organization [facility] Address [address] [place] [address] Care Team Providers Care Marble Machine Tender Name Role Phone Clinic, No Pcp Or Primary Care Provider Unavaila ble Allergies No known active allergies Social History Tobacco Use Types Packs/Day Years Used Date Smoking Tobacco: Never Smokeless Tobacco: Never Alcohol Use Standard Drinks/Week Comments Not Currently 0 (1 standard drink = 0.6 oz pur e alcohol) Sex and Gender Information Value Date Recorded Sex Assigned at Not on file Legal Sex Male 7:[address] MECHANIC Gender Identity Not on file Sexual Orientation Not on file Obstetrics History Last Filed Vital Signs Vital Sign Reading Time Taken Comments Blood Pressure 144/67 09/22/2021 5:[address] CAR MECHANIC Pulse 92 09/22/2021 5:[address] CAR MECHANIC Temperature 37.4 C (99.4 F) 09/22/2021 5:[address] CAR MECHANIC Respiratory Rate 16 09/22/2021 5:[address] CAR MECHANIC Oxygen Saturation 97% 09/22/2021 5:[address] CAR MECHANIC Inhaled Oxygen Concentration - - Weight - - Height - - Body Mass Index - - Plan of Treatment Health Maintenance Due Date Last Done Comments Tetanus booster 1949 Depression screening for age 12+ 1950 BMI (ht and wt on same day) for age 18+ 1956 Pneumococcal series for age 50+ (1 of 1 - PCV) 1988 Zoster (shingles) series for age 50+ (1 of 2) 1988 Medicare Wellness for age 65+ 2003 RSV vaccine for adults or (1 - 1-dose 75+ series) 2013 COVID-19 vaccine series (2023- season) 2024 02/13/2022, 08/09/2021 Influenza Vaccine (#1) 2025 Hepatitis B series for 19+ Aged Out N o longer eligible based on patient's age to complete this topic Insurance [facility] PB ONLY MEDICARE PB ONLY Care Teams Marble Machine Tender Relationship Specialty Start Date End Date Clinic, No Pcp Or . PCP - General 09/22/21
--- OUTSIDE RECORDS SUMMARY | 2025-05-17 13:59 | XMS_ITS | Encounter Summary ---
Author Organization [facility] Address [address] [facility] [address] [place] [address], [place] [address] Care Team Providers Care Wind Project Manager Name Role Phone Unavailable Primary Care Provider Unavailabl e Encounter Details Date Type Department Care Team (Late st Contact Info) Description 05/07/2025 Documentation Only [facility] [address] [facility] [address] [phone] Mary Beth Figueroa NP [address] [phone] Social History Tobacco Use Types Packs/Day Years Used Date Smoking Tobacco: Never Smokeless Tobacco: Never Sex and Gender Information Value Date Recorded Sex Assigned at Not on file Legal Sex Male 7:32 AM EDT Gender Identity Not on file Sexual Orientation Not on file documented as of this encounter Progress Notes * Mary Beth Figueroa NP - 05/07/2025 3:06 PM CDT Images from the original note were not included. Chart review date: 05/07/25 Patient Name: Geremias Estrella Patient Date of : 1940 FYIs only (no need to put in chart): - Saw Vascular at [facility] last 03/2024 for eval of AAA and throacic . Recommended surveillance imaging in one year... he is due. Though he did have imaging in Oct 2024, it does not note the size of the thoracic aortic aneurysm. Reported hospitalizations and reasons for admissions in the past year: None since 2022 Care Team: PCP - [facility] [place] - Cardiology - [facility] - CAD s/p SEBASTIAN. HTN Otology - [facility] - Cholesteatoma external ear gilberto (declined further eval) plan for simple debridement. Podiatry - [facility] - DM foot check, onychomycosis. Derm - [facility] - SCC left UE consideration of [facility] Vascular - [facility] - AAA, gilberto carotid art stenosis. Plan for surveillance in ~ 1 year (~ 03/2025) due to wide discrepancy in size of thoracic aortic aneurysm Assessment and Plan: Problem List Abdominal aortic aneurysm without rupture (HCC) (Chronic) Current Assessment & Plan Status: Stable. CT oct 2024 showed stability. Plan: Continue to follow with vascular. Secondary hyperparathyroidism of renal origin (HCC) - Primary (Chronic) Current Assessment & Plan Status: Stable Plan: Continue monthly labs. RD following. 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 Now requires midodrine. Last ECHO: 02/13/24 EF 64%, diastolic dysfunction mild. Plan: Continue current medications. Monitor BP closely while on dialysis. Challenge EDW periodically. Recommend ECHO every three years for patients with ESRD per KDOQI guidelines. Thoracic aortic aneurysm without rupture, not otherwise specified (HCC) Current Assessment & Plan Status: Stable. Per vascular note, wide discrepancy in size of thoracic aortic aneurysm on different imaging. Plan: Due for surveillance imaging. Encourage f/u with vascular Mary Beth Figueroa CNP [facility] documented in this encounter Miscellaneous Notes * Assessment & Plan Note - Mary Beth Figueroa NP - 05/07/2025 3:49 PM CDTAssociated Problem(s): Thoracic aortic aneurysm without rupture, not otherwise specified (HCC) Status: Stable. Per vascular note, wide discrepancy in size of thoracic aortic aneurysm on different imaging. Plan: Due for surveillance imaging. 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 Now requires midodrine. Last ECHO: 02/13/24 EF 64%, diastolic dysfunction mild. Plan: Continue current medications. Monitor BP closely while on dialysis. Challenge EDW periodically. Recommend ECHO every three years for patients with ESRD per KDOQI guidelines. * Assessment & Plan Note - Mary Beth Figueroa NP - 05/07/2025 3:43 PM CDTAssociated Problem(s): Abdominal aortic aneurysm without rupture (HCC) Status: Stable. CT oct 2024 showed stability. Plan: Continue to follow with vascular. * Assessment & Plan Note - Mary Beth Figueroa NP - 05/07/2025 3:42 PM CDTAssociated Problem(s): Secondary hyperparathyroidism of renal origin (HCC) Status: Stable Plan: Continue monthly labs. RD following. 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
--- OUTSIDE RECORDS SUMMARY | 2025-05-17 13:59 | XMS_ITS ---
Author Organization [facility] Address [address] [place] [address] Care Team Providers Care Assistant Front Office Manager Name Role Phone Mary Goodwin M.D. Primary Care Provider [phone]- [phone] Procedures Procedure Name Priority Date/Time Associated Diagnosis Comments COMPREHENSIVE METABOLIC PANEL, S/P STAT 11/20/2024 8:35 AM HANDLE LATHE OPERATOR from Last 3 Months or Most Recently Relevant to Health Maintenance Allergies Active Allergy Reactions Criticality Noted Date [...] represent a complete record from that organization. [id number] [id number] ac (Glucos Chond Cplx Advanced) [...] Overview (05/21/2024): Follows with Vascular Medicine at [place]. 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 Immunizations Immunization Administration Dates Next Due H1N1 [...] quad (FLUZONE/FLUARIX) (6 months and older)(PF) 06/21/2020,07/19/2015 Social History Tobacco Use Types Packs/Day Years [...] things needed for daily living? No 04/20/2025 [facility] Utilities Answer Date Recorded In the past 12 months has th e electric, gas, oil, or water company threatened to shut off services in your home? No 04/20/2025 Depression Answer Date Recor ded PHQ-9 Total Score (max 27) 2 11/12 Housing Stability Answer Date Recorded What is your living situation today? I have a [facility] place to live 04/20/2025 Education Answer Date Recorded What is the highest level of school you have completed or the highest degree you have received? 12th grade 12/03/2022 Sex and Gender Information Value Date Recorded Sex Assigned at Male 12/03/2022 5:23 PM HANDLE LATHE OPERATOR Legal Sex Male 3:43 PM CDT Gender Identity Male 12/03/2022 5:23 PM HANDLE LATHE OPERATOR Sexual Orientation Straight 12/03/2022 5: 23 PM HANDLE LATHE OPERATOR Last Filed Vital Signs Vital Sign Reading Time Taken Comments Blood Pressure 100/48 02/11/2025 8:12 AM CDT Pulse 65 02/11/2025 8:12 AM CDT Temperature 36.8 C (98.2 F) 11/26/2024 3:39 PM HANDLE LATHE OPERATOR Respiratory Rate 20 11/26/2024 3:39 PM HANDLE LATHE OPERATOR Oxygen Saturation 95% 01/26/2025 12:49 PM CDT Inhaled Oxygen Concentration - - Weight 103 kg (226 lb 10.1 oz) 01/26/2025 12:49 PM CDT Height 189.1 cm (6' 2.45) 11/26/2024 3:39 PM CS T Body Mass Index 28.75 11/26/2024 3:39 PM HANDLE LATHE OPERATOR Results * (ABNORMAL) Comprehensive Metabolic Panel (11/20/2024 8:35 AM HANDLE LATHE OPERATOR) Pathologist [facility] Potassium, P 4.7 3.6 - 5.2 mmol/L 11/20/2024 8:52 AM HANDLE LATHE OPERATOR CNFL Sodium, P 133(L) 135 - 145 mmol/L 11/20/2024 8:52 AM HANDLE LATHE OPERATOR CNFL Chloride, P 94(L) 98 - 107 mmol/L 11/20/2024 8:52 AM HANDLE LATHE OPERATOR CNFL Bicarbonate, P 22 22 - 29 mmol/L 11/20/2024 8:52 AM HANDLE LATHE OPERATOR CNFL Anion Gap, P 17(H) 7 - 15 11/20/2024 8:52 AM HANDLE LATHE OPERATOR CNFL BUN (Blood Urea Nitrogen), P 52(H) 8 - 24 mg/dL 11/20/2024 8:52 AM HANDLE LATHE OPERATOR CNFL Creatinine 6.49(H) 0.74 - 1.35 mg/dL 11/20/2024 8:52 AM HANDLE LATHE OPERATOR CNFL Estimated GFR (eGFR) <15(L) >=60 mL/min/BS A 11/20/2024 8:52 AM HANDLE LATHE OPERATOR CNFL Comment: Estimated GFR calculated using the 2020 CKD_EPI creatinine equation. Calcium, Total, P 9.1 8.8 - 10.2 mg/dL 11/20/2024 8:52 AM HANDLE LATHE OPERATOR CNFL Glucose, P 103 70 - 140 mg/dL 11/20/2024 8:52 AM HANDLE LATHE OPERATOR CNFL Protein, Total, P 6.6 6.3 - 7.9 g/dL 11/20/2024 8:52 AM HANDLE LATHE OPERATOR CNFL Albumin, P 3.8 3.5 - 5.0 g/dL 11/20/2024 8:52 AM HANDLE LATHE OPERATOR CNFL Aspartate Aminotransferase (AST), P 108(H) 8 - 48 U/L 11/20/2024 8:52 AM HANDLE LATHE OPERATOR CNFL Alkaline Phosphatase, P 92 40 - 129 U/L 11/20/2024 8:52 AM HANDLE LATHE OPERATOR CNFL Alanine Aminotransferase (ALT), P 60(H) 7 - 55 U/L 11/20/2024 8:52 AM HANDLE LATHE OPERATOR CNFL Bilirubin, Total, P 0.4 0.0 - 1.2 mg/dL 11/20/2024 8:52 AM HANDLE LATHE OPERATOR CNFL Blood (Blood, Venous) 11/20/2024 8:35 AM HANDLE LATHE OPERATOR 11/20/2024 8:35 AM HANDLE LATHE OPERATOR Alexandre Haji APRN, C.N.P., M.S.N. LAB BLOOD ADD-ON Final Result [facility] [address] [place] [id number], [facility] CNFL [facility] in [address] [address] from Last 3 Months or Most Recently Relevant to Health Maintenance
--- OUTSIDE RECORDS SUMMARY | 2025-05-17 13:59 | XMS_ITS | Encounter Summary ---
Author Organization [facility] Address [address] [place] [address] Care Team Providers Care Border Patrol Agent Name Role Phone Mary Goodwin M.D. Primary Care Provider [phone]- [phone] Reason for Visit * Reason Comments Med Refill Encounter Details Date Type Department Care Team (Late st Contact Info) Description 05/17/2025 Refill Department of Family Medicine, [facility], in [address] [phone] Mary Goodwin M.D. [address] [place] [phone] Med Refill Social History Tobacco Use Types [...] things needed for daily living? No 04/20/2025 [facility] Utilities Answer Date Recorded In the past 12 months has th e electric, gas, oil, or water company threatened to shut off services in your home? No 04/20/2025 Depression Answer Date Recor ded PHQ-9 Total Score (max 27) 2 11/12 Housing Stability Answer Date Recorded What is your living situation today? I have a [facility] place to live 04/20/2025 Education Answer Date Recorded What is the highest level of school you have completed or the highest degree you have received? 12th grade 12/03/2022 Sex and Gender Information Value Date Recorded Sex Assigned at Male 12/03/2022 5:23 PM CHIEF GREEN OFFICER Legal Sex Male 3:43 PM CDT Gender Identity Male 12/03/2022 5:23 PM CHIEF GREEN OFFICER Sexual Orientation Straight 12/03/2022 5: 23 PM CHIEF GREEN OFFICER documented as of this encounter Plan of Treatment Upcoming Encounters Date Type Department Care Team (Late st Contact Info) Description 05/25/2025 4:30 PM CDT Appointment Department of Laboratory Medicine in [address] [phone] Mary Goodwin M.D. [address] [place] [phone] 05/27/2025 9:00 AM CDT Office Visit Department of Family Medicine, [facility], in [address] [phone] Mary Goodwin M.D. [address] [place] [phone] Discharge Disposition: Home or Self Care 07/26/2025 3:15 PM CDT Office Visit Department of Orthopedic Surgery in [address] [phone] Elsa Villarreal D.PDavidMDavid [address] [place] [phone] Discharge Disposition: Home or Self Care documented as of this encounter Visit Diagnoses Diagnosis Primary Osteoarthritis Knee Bilateral documented in this encounter Additional Health Concerns Assessment Noted Time PHQ-9 Depression Total Score: 2 11/12/19 24 4:33 PM CHIEF GREEN OFFICER documented as of this encounter Care Teams Border Patrol Agent Relationship Specialty Start Date End Date Mary Goodwin M.D. [address] [place] [phone] PCP - General 02/14/24 documented as of this encounter
[2025-05-17 14:00] LABS: HCO3 VBG 26 mmol/L (21-28)
== END 2025-05-17 14:37 | disposition home or self-care (01) ==
PROVIDERS: Emergency Provider Student in an Organized Health Care Education/Training Program
DX: R41.0 Disorientation, unspecified (principal); E11.22 Type 2 diabetes mellitus with diabetic chronic kidney disease; I12.0 Hypertensive chronic kidney disease with stage 5 chronic kidney disease or end stage renal disease; N18.6 End stage renal disease; M25.562 Pain in left knee; M25.561 Pain in right knee; Z79.899 Other long term (current) drug therapy; Z99.2 Dependence on renal dialysis
CPT/HCPCS: 36415; 71046; 80053; 82803; 83735; 85025; 93005; 99283; 99284; 99285